=== PATIENT | male | born 1970 | race Caucasian/White ===

== ENCOUNTER 2023-07-11 13:16 | Outpatient (AMB) | payer BC, SELFPAY ==
[2023-07-11 13:18] VITALS: BP 172/102; PULSE 76; O2SAT 99; BMI 33.6
--- NOTE | 2023-07-11 13:18 | A.OFFPC_ITS ---
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 Allergies Penicillins Allergy (Mild, Verified 07/11/23 13:23) Unknown Medication List - Last Reconciled 07/11/23 by Stephania Torre MD blood pressure monitor (Blood Pressure Kit) As directed Tobacco use date assessed: 07/11/23 Dental Screening Dental Screen Date: 07/11/23 Did you have a dental visit in the last 12 months?: No Did you have a dental problem in the last 6 months where you did not have access to dental care?: No Was dental information given to patient?: Patient has dentist HPI New patient-requesting physical HPI Details 53-year-old obese male coming in for the 1st time for physical exam. syncope kid, falls asleep in the couch, snore, sleep apnea was told but could not tolerate the CPAP. Discussed importance of getting this treated. [facility] Medical History (Updated 07/11/23 @ 13:52 by Stephania Torre MD) Lumbar vertebral fracture Surgical History (Updated 07/11/23 @ 13:37 by Stephania Torre MD) History of appendectomy Family History (Updated 07/11/23 @ 13:39 by Stephania Torre MD) Maternal Uncle Myocardial infarct Father Colon cancer Mother Small cell lung cancer Sister Bipolar 1 disorder Social History (Updated 07/11/23 @ 13:40 by Stephania Torre MD) Housing: House Alcohol intake: current Patient Tobacco Use Status: Former Tobacco user Years Smoked: quit 1987 1 pack week 6months service: No Current occupational status: employed Cognitive needs: No Hearing needs: No Vision needs: No Questionnaire PHQ-9 Over the last 2 weeks, how often have you been bothered by any of the following problems? 1. Little interest or pleasure in doing things: not at all 2. Feeling down, depressed, or hopeless: not at all 3. Trouble falling or staying asleep, or sleeping too much: not at all 4. Feeling tired or having little energy: not at all 5. Poor appetite or overeating: not at all 6. Feeling bad about yourself - or that you are a failure or have let yourself or your family down: not at all 7. Trouble concentrating on things, such as reading the newspaper or watching television: not at all 8. Moving or speaking so slowly that other people could have noticed. Or the opposite - being so fidgety or restless that you have been moving around a lot more than usual: not at all 9. Thoughts that you would be better off or of hurting yourself in some way: not at all Total score: 0 Depression Screening Interpretation: Negative Source: Developed by Drs. Eric Watson, Yoselin Carranza, French Navas and colleagues, with an educational bruce from [employer]. Thrive Questionnaire Date Thrive assessed: 07/11/23 I am a: Patient What is your living situation today?: I have a steady place to live Within the past 12 months, did the food you bought not last and you didn't have the money to get more?: Never true Within the past 12 months, did you worry whether your food would run out before you got money to buy more?: Never true Do you have trouble paying for medicines?: No Do you have trouble getting transportation to medical appointments?: No Do you have trouble paying your heating and electricity bill?: No Do you have trouble taking care of your child, family member or friend?: No Do you have trouble with day-to-day activities such as bathing, preparing meals, shopping, managing finances, etc.?: No Are you currently unemployed and looking for a job?: No Are you interested in more education?: No AUDIT C Alcohol Use Questionnaire (AUDIT-C) 1. How often do you have a drink containing alcohol?: Monthly or less 2. How many drinks containing alcohol do you have on a typical day when you are drinking?: 1 or 2 3. How often do you have six or more drinks on one occasion?: Never Total Score: 1 BARBER-7 AMB Questionnaire BARBER-7 Date BARBER - 7 assessed: 07/11/23 Feeling nervous, anxious, or on edge: 0 = Not at all Not being able to stop or control worryin = Not at all Worrying too much about different things: 0 = Not at all Trouble relaxin = Not at all Being so restless that it is hard to sit still: 0 = Not at all Becoming easily annoyed or irritable: 0 = Not at all Feeling afraid as if something awful might happen: 0 = Not at all Total BARBER-7 score (0-4 normal; 5-9 mild; 10-14 moderate; 15-21 severe): 0 Source: Developed by Drs. Eric Watson, Yoselin Carranza, French Navas and colleagues, with an educational bruce from [employer]. Review of Systems Const Denies poor appetite and Denies weakness Eyes Denies no additional complaints ENT Reports Normal hearing present, Denies dizziness, Denies nasal congestion, Denies tinnitus and Denies sore throat Card Denies chest pain, Denies syncope, Denies rapid heart rate and Denies dyspnea Resp Denies cough and Denies dyspnea GI Denies change in stool character, Reports constipation, Denies diarrhea, Denies nausea and Denies vomiting Denies dysuria and Denies urinary frequency Neuro Reports Normal hearing present, Denies confusion, Denies dizziness, Denies syncope and Denies weakness Psych Denies confusion Physical exam (Primary Care) Vital Signs: Last Vital Signs Pulse 76 07/11/23 13:18 BP 172/102 H 07/11/23 13:18 Pulse Ox 99 07/11/23 13:18 Oxygen Delivery Method Room Air 07/11/23 13:18 Care Plan Goal for BP management: umbilical hernia BMI result Body Mass Index 33.6 Tobacco/Smoking Status: Tobacco use Status Tobacco use date assessed 07/11/23 07/11/23 13:20 Patient Tobacco Use Status Former Tobacco user 07/11/23 13:40 PHQ-9: PHQ-9 Score PHQ-9: Total score 0 07/11/23 14:12 Depression Screening Interpretation: Negative Thrive Assessment: Date of Thrive Assessment Date Thrive assessed 07/11/23 07/11/23 13:20 Const General: No confusion Orientation/consciousness: No confusion HENMT Head: Yes normocephalic Ears: external ears normal and TM's normal bilaterally Face and sinus: Yes normal facial exam Mouth: moist mucous membranes Throat: Yes tonsils normal Eyes Conjunctivae: conjunctivae normal Pupils: Equal, round and reactive pupils present and Pupil accommodation reflex normal Direct Ophthalmoscopy: normal light reflex Neck Neck: No lymphadenopathy Thyroid: Thyroid normal Chest Chest palpation & inspection: normal inspection of the chest Resp Effort & Inspection: normal respiratory effort and no audible wheezes Auscultation: clear to auscultation bilaterally, no crackles, no wheezes and lung sounds not diminished Cardio Rate: regular rate Rhythm: regular rhythm Peripheral pulses: radial pulses present and dorsalis pedis present GI Other: guaiac negative prostate n Palpation (GI): no masses Auscultation: normal bowel sounds and normoactive bowel sounds Male General Exam: Yes normal external exam Skin General skin exam: no rashes or lesions noted Rashes: no rashes Neuro General: No confusion Cranial nerves: Yes Equal, round and reactive pupils present and Yes Normal hearing present Cognition (Neuro): normal cognition Gait exam (Neuro): Normal gait present Motor exam (neuro): 5/5 motor strength present throughout Deep tendon reflexes (DTR's): Right brachioradialis reflex intensity grade: 2+, Left brachioradialis reflex intensity grade: 2+, Right patellar reflex intensity grade: 2+ and Left patellar reflex intensity grade: 2+ Extrem Other: 1 + edema General: Yes edema Assessment and Plan Assessment & Plan (1) Annual physical exam: Code(s): Z00.00 - Encounter for general adult medical examination without abnormal findings (2) Obesity (BMI 30-39.9): Code(s): E66.9 - Obesity, unspecified Plan: Diet With exercise (3) Hypertension: Code(s): I10 - Essential (primary) hypertension Plan: Continue with blood pressure medication. Decrease salt intake and exercise (4) Obstructive sleep apnea: Code(s): G47.33 - Obstructive sleep apnea (adult) (pediatric) Plan: Sleep study requested (5) GERD (gastroesophageal reflux disease): Code(s): K21.9 - Gastro-esophageal reflux disease without esophagitis Plan: Avoid the foods that causes that usually spicy foods, tomato products, juices, coffee, soda and foods that your sensitive to. After eating do not lie down, allow 3-4 hours before in lie down. And keep the head of bed above 30 degrees to avoid the acid from going up. (6) Colon cancer screening: Code(s): Z12.11 - Encounter for screening for malignant neoplasm of colon Plan: Referral done (7) Umbilical hernia: Code(s): K42.9 - Umbilical hernia without obstruction or gangrene Plan: Declined any referral to surgery, avoid heavy lifting monitor for now Orders: Orders RT home sleep study Today G47.33 - Obstructive sleep apnea (adult) (pediatric) Vitamin B12 and Folate Today K21.9 - Gastro-esophageal reflux disease without esophagitis Comprehensive Met. Panel Today I10 - Essential (primary) hypertension Lipid Panel Today E78.00 - Pure hypercholesterolemia, unspecified, I10 - Essential (primary) hypertension Prostate Specific Antigen Scr Today I10 - Essential (primary) hypertension Free T4 (Free Thyroxine) Today I10 - Essential (primary) hypertension Thyroid Stimulating Hormone Today I10 - Essential (primary) hypertension Complete Blood Count Auto Diff Today I10 - Essential (primary) hypertension TDaP Immunization Today Z23 - Encounter for immunization Referrals Gastroenterology Referral Z12.11 - Encounter for screening for malignant neoplasm of colon Medications: New Boostrix Tdap (diphth,pertus(acell),tetanus) 0.5 mL IM ONCE 0.5 mL 0RF NS Z23 - Encounter for immunization blood pressure monitor (Blood Pressure Kit) As directed 1 ea 0RF I10 - Essential (primary) hypertension, R03.0 - Elevated blood-pressure reading, without diagnosis of hypertension blood pressure monitor (Blood Pressure Kit) As directed 1 ea 0RF I10 - Essential (primary) hypertension, R03.0 - Elevated blood-pressure reading, without diagnosis of hypertension lisinopril-hydrochlorothiazide 10-12.5 mg 1 tab PO DAILY 30 tabs 3RF I10 - Essential (primary) hypertension Coding Level of Care Code New Pt Prev Care 40-64y(24969) Diagnoses Annual physical exam Z00.00 Obesity (BMI 30-39.9) E66.9 Hypertension I10 Obstructive sleep apnea G47.33 GERD (gastroesophageal reflux disease) K21.9 Colon cancer screening Z12.11 Umbilical hernia K42.9
== END 2023-07-11 14:18 | disposition home or self-care (01) ==
PROVIDERS: PCP Internal Medicine; Visit Provider Internal Medicine
DX: Z00.00 Encounter for general adult medical examination without abnormal findings (principal); E66.9 Obesity, unspecified; I10 Essential (primary) hypertension; K21.9 Gastro-esophageal reflux disease without esophagitis; Z68.33 Body mass index [BMI] 33.0-33.9, adult; G47.33 Obstructive sleep apnea (adult) (pediatric); Z23 Encounter for immunization; Z12.11 Encounter for screening for malignant neoplasm of colon; K42.9 Umbilical hernia without obstruction or gangrene
CPT/HCPCS: 90471; 90715; 99386

== ENCOUNTER 2023-08-15 08:10 | Outpatient (REF) | payer BC, SELFPAY ==
[2023-08-15 10:58] LABS: MANUAL DIFF FLAG NO
[2023-08-15 11:06] LABS: Basophils Absolute Auto 0.1 X10*3/uL (0.0-0.2); Basophils Percent Auto 0.7 % (0-2); Eosinophils Absolute Auto 0.3 X10*3/uL (0.0-0.4); Eosinophils Percent Auto 3.5 % (0-4); Hematocrit 48.5 % (42.0-52.0); Hemoglobin 15.5 g/dl (14.0-18.0); Imm Gran Abs Auto 0.06 X10*3/uL (0.00-0.03); Imm Gran Pct Auto 0.8 % (0.0-0.4); Lymphocytes Absolute Auto 1.9 X10*3/uL (1.2-4.9); Lymphocytes Percent Auto 25.1 % (20-40); Mean Corpuscular Hemoglobin 27.2 pg (27.0-33.0); Mean Corpuscular Volume 85.2 fL (80.0-98.0); Mean Platelet Volume 11.1 fL (9.4-12.4); Monocytes Absolute Auto 0.7 X10*3/uL (0.1-1.2); Neutrophils Absolute Auto 4.7 x10*3/uL (2.0-8.3); Neutrophils Percent Auto 60.9 % (45-73); Platelet Count 244 X10*3/uL (160-400); Red Blood Count 5.69 X10*6/uL (4.60-5.80); White Blood Count 7.7 X10*3/uL (4.8-10.8)
[2023-08-15 12:11] LABS: Prostate Specific Antigen Scr 0.32 ng/mL (<0.05-4.0); Vitamin B12 571 pg/mL (200-900)
[2023-08-15 12:15] LABS: Free T4 (Free Thyroxine) 0.99 ng/dL (0.71-1.85); Thyroid Stimulating Hormone 2.14 uIU/mL (0.32-4.0)
[2023-08-15 13:42] LABS: Alanine Aminotransferase 33 U/L (0-40); Albumin Level 4.5 g/dL (3.5-5.0); Alkaline Phosphatase 84 U/L (39-117); Anion Gap 14 (12-20); Aspartate Amino Transferase 28 U/L (5-37); Bilirubin Total 0.4 mg/dL (0.0-1.0); Blood Urea Nitrogen 14 mg/dL (9-16); Calcium 9.8 mg/dL (8.4-10.2); Carbon Dioxide 29 mmol/L (22-29); Chloride 104 mmol/L (96-108); Cholesterol 221 mg/dL (<200); Estimated Glomerular Filt Rate > 60; Glucose Random 127 mg/dL (60-115); HDL Cholesterol 47 mg/dL (>40); LDL Cholesterol Calculated 144 mg/dL (<100); Potassium 4.5 mmol/L (3.3-5.1); Sodium 142 mmol/L (135-145); Total Protein 7.7 g/dL (6.5-8.0); Triglycerides 153 mg/dL (<150)
== END 2023-08-15 08:11 | disposition home or self-care (01) ==
LOC: HO.10HDL 08:10
PROVIDERS: Visit Provider Internal Medicine
DX: Z12.5 Encounter for screening for malignant neoplasm of prostate (principal); I10 Essential (primary) hypertension; E78.00 Pure hypercholesterolemia, unspecified; K21.9 Gastro-esophageal reflux disease without esophagitis
CPT/HCPCS: 36415; 80053; 80061; 82607; 82746; 84153; 84439; 84443; 85025

== ENCOUNTER → 2023-08-21 14:11 | Outpatient (REF) | payer BC, SELFPAY | LOC: HO.SL 14:11 | PROVIDERS: PCP Internal Medicine; Visit Provider Internal Medicine | DX: G47.33 Obstructive sleep apnea (adult) (pediatric) (principal) | CPT/HCPCS: 95806 ==

== ENCOUNTER → 2023-08-21 14:42 | Outpatient (BNV) | payer BC, SELFPAY | PROVIDERS: PCP Internal Medicine; Visit Provider Internal Medicine | DX: G47.33 Obstructive sleep apnea (adult) (pediatric) (principal) | CPT/HCPCS: 95806 ==

== ENCOUNTER 2023-09-11 13:32 | Outpatient (AMB) | payer BC, SELFPAY ==
--- NOTE | 2023-09-11 13:35 | MHC.OFFVIS ---
Intake Vital Signs 09/11/23 13:36 Height 6 ft Weight 244 lb 11.41 oz BMI 33.2 BP 140/80 H Pulse 80 Intake Visit Reasons: Colonoscopy Screening Forecast Analyst Required: No Information Interpreted: clinical only Allergies Penicillins Allergy (Mild, Verified 09/11/23 13:40) Unknown HPI Colonoscopy Screening HPI Details 53 year old?male here today for pre colonoscopy screening.? Patient was sent to us by his PCP.? This is his first colonoscopy screening.? Patient denies any gastrointestinal symptoms in the past or at present.? However only occasional acid reflux depending on what he eats. Patient denies dyspepsia, dysphagia or odynophagia. Patient's father was diagnosed with colo rectal cancer over 7 years ago and had surgical resection. No chemo. Sister was diagnosed with polyps. Denies history of difficulty with sedation or anesthesia in the past.? Patient was diagnosed in the past with sleep apnea, unable to wear CPAP machine. Just recently patient had home sleep study test done and awaiting for results.? Denies any history of cardiac, renal, pulmonary, or hepatic disease.?? No history of infectious? diseases like hepatitis A, B, C, HIV or tuberculosis.? Patient is not on any anticoagulation therapy. [facility] Medical History (Updated 09/23/23 @ 20:02 by Debo Syed [facility]) Family history of colorectal cancer Lumbar vertebral fracture Surgical History History of appendectomy Family History Maternal Uncle Myocardial infarct Father Colon cancer Mother Small cell lung cancer Sister Bipolar 1 disorder Social History Housing: House Alcohol intake: current Patient Tobacco Use Status: Former Tobacco user Years Smoked: quit 1987 1 pack week 6months service: No Current occupational status: employed Cognitive needs: No Hearing needs: No Vision needs: No Review of Systems Const Denies weight gain and Denies weight loss ENT Reports no additional complaints, Denies dysphagia and Denies odynophagia Card Reports no additional complaints Resp Reports no additional complaints GI Denies abdominal pain, Denies belching, Denies melena, Denies bloating, Denies change in bowel habits, Denies dysphagia, Denies excessive flatus, Denies dyspepsia, Denies heartburn, Denies diarrhea, Denies loose stools, Denies nausea, Denies odynophagia and Denies vomiting Reports no additional complaints Musc Reports no additional complaints Neuro Reports no additional complaints Psych Reports no additional complaints Endo Reports no additional complaints Physical Exam Vital Signs: Last Vital Signs Pulse 80 09/11/23 13:36 BP 140/80 H 09/11/23 13:36 BMI result Body Mass Index 33.2 Const General: healthy appearing, no acute distress and well developed Nutritional Appearance: obese Orientation/consciousness: patient oriented x3 HEENT Head: Yes normal to inspection, Yes normocephalic and Yes atraumatic Face and sinus: Yes normal facial exam Mouth: Normal oral and palatal mucosa present Throat: Yes posterior oropharynx normal, Yes tonsils normal and Yes uvula midline Eyes General: appearance normal, both eyes and all related structures Neck Neck: Yes normal visual inspection, Yes full ROM and Yes trachea midline Thyroid: Thyroid normal Resp Effort & Inspection: normal respiratory effort, able to speak in complete sentences, no tracheal deviation and symmetric chest movement Auscultation: clear to auscultation bilaterally Cardio Rate: regular rate Heart sounds: S1 normal heart sound present and S2 normal heart sound present GI Inspection: Yes normal to inspection, No distended and Yes obesity Palpation (GI): Soft to palpation, not firm, nontender and No hepatosplenomegaly present Auscultation: normal bowel sounds General: Yes no CVA tenderness Back/Spine/Pelvis Back: no CVA tenderness Skin General skin exam: elasticity normal, turgor normal and dry skin Neuro General: patient oriented x3 Psych Appearance: grossly normal Mental Status: mental status grossly normal Assessment & Plan Assessment & Plan (1) Colon cancer screening: Code(s): Z12.11 - Encounter for screening for malignant neoplasm of colon Plan: Patient denies any GI, cardiac or respiratory symptoms.? Denies any issues with anesthesia in the past.? History of sleep apnea not using CPAP.? No history infectious diseases in the past or present.? Not on any anticoagulation therapy.? As mentioned above in HPI patient's father was diagnosed 7 years ago with colorectal cancer. He believes he had colon resection but no chemo. Patient's sister had polyps.? Discussed at length the pre-procedure,? prep, diet & medications as well as what to expect prior, during and after the procedure.?? Stressed the importance of good bowel prep. ?Recommended the use of Vaseline or Calmoseptine OTC & baby wipes with bowel movements to promote comfort.? ?Patient verbalizes understanding and agrees to plan of care.? He was given the opportunity to ask questions and all questions answered.? We will see him after the procedure.? (2) GERD (gastroesophageal reflux disease): Code(s): K21.9 - Gastro-esophageal reflux disease without esophagitis (3) Family history of colorectal cancer: Code(s): Z80.0 - Family history of malignant neoplasm of digestive organs Medications: New bisacodyl (Dulcolax (bisacodyl)) take 2 tabs at noon the day before your colonoscopy 10 mg (2 x 5 mg) PO ONCE 2 tabs 0RF 1 day Z12.11 - Encounter for screening for malignant neoplasm of colon polyethylene glycol 3350 (Miralax) As directed by gastro[facility]ology [facility] at [facility] 238 grams PO ONCE 238 grams 0RF Z12.11 - Encounter for screening for malignant neoplasm of colon Coding Level of Care Code New Pt Level 3 (24676) Diagnoses Colon cancer screening Z12.11 GERD (gastroesophageal reflux disease) K21.9 Family history of colorectal cancer Z80.0 Time Spent (min) 40 Comment 30 minutes spent with patient and additional 10 minutes spent reviewing his records
[2023-09-11 13:36] VITALS: BP 140/80; PULSE 80; BMI 33.2
== END 2023-09-11 14:24 | disposition home or self-care (01) ==
PROVIDERS: PCP Internal Medicine; Visit Provider Nurse Practitioner Family
DX: K21.9 Gastro-esophageal reflux disease without esophagitis (principal); Z80.0 Family history of malignant neoplasm of digestive organs; Z12.11 Encounter for screening for malignant neoplasm of colon; Z01.818 Encounter for other preprocedural examination
CPT/HCPCS: S0285

== ENCOUNTER → 2023-09-11 13:32 | Outpatient (BNVA) | payer BC, SELFPAY | PROVIDERS: PCP Internal Medicine; Visit Provider Nurse Practitioner Family ==

== ENCOUNTER 2023-10-03 12:48 | Outpatient (AMB) | payer BC, SELFPAY ==
--- NOTE | 2023-10-03 13:07 | MHC.OFFVIS ---
Intake Vital Signs 10/03/23 13:09 Height 6 ft Weight 242 lb 6 oz BMI 32.9 BP 130/80 Blood Pressure Location Lt brachial Position Sitting Pulse 78 Pulse Source Pulse Oximeter Pulse Oximetry (%) 96 Oxygen Delivery Method Room Air Intake Visit Reasons: Hypertension Intake Note: Patient is here to follow up on HTN. 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 Accompanied by: Self / Same As Patient Allergies Penicillins Allergy (Mild, Verified 10/03/23 13:12) Unknown Medication List - Last Reconciled 10/03/23 by Stephania Torre MD [AUTOPAP 6-20 mm HG As directed] bisacodyl (Dulcolax (bisacodyl)) 10 mg (2 x 5 mg) PO ONCE 1 day blood pressure monitor (Blood Pressure Kit) As directed fexofenadine (Angelika Allergy) 180 mg PO DAILY lisinopril-hydrochlorothiazide 10-12.5 mg 1 tab PO DAILY polyethylene glycol 3350 (Miralax) 238 grams PO ONCE HPI Hypertension HPI Details 53-year-old obese male with hypertension, obstructive sleep apnea, GERD and umbilical hernia last seen in July 2023. Patient is here for follow-up patient has met with the journalism intern and colonoscopy spending. Patient did have the sleep study done August 2023 showing severe obstructive sleep apnea and has been advised auto PAP mode and pressure sending 6-20 cm 3 months of cough , tickle PFSH Medical History (Updated 10/03/23 @ 13:40 by Stephania Torre MD) Family history of colorectal cancer Lumbar vertebral fracture Surgical History History of appendectomy Family History Maternal Uncle Myocardial infarct Father Colon cancer Mother Small cell lung cancer Sister Bipolar 1 disorder Social History Housing: House Alcohol intake: current Patient Tobacco Use Status: Former Tobacco user Years Smoked: quit 1987 1 pack week 6months service: No Current occupational status: employed Cognitive needs: No Hearing needs: No Vision needs: No Physical Exam Vital Signs: Last Vital Signs Pulse 78 10/03/23 13:09 BP 130/80 10/03/23 13:09 Pulse Ox 96 10/03/23 13:09 Oxygen Delivery Method Room Air 10/03/23 13:09 BMI result Body Mass Index 32.9 Const General: alert; No acute distress Eyes Conjunctivae: conjunctivae normal Resp Auscultation: clear to auscultation bilaterally Cardio Rate: regular rate Rhythm: regular rhythm GI Inspection: Yes normal to inspection Extrem General: Yes normal to inspection and No edema Office Procedures Flu Questionnaire Does the patient have a severe egg allergy?: No Does the patient have severe life threatening allergies?: No Does the patient have a fever or illness today?: No Has the patient ever had Guillain-[place] Syndrome?: No Has the patient ever had any past reaction to a flu shot?: No Results AMB Hemoglobin A1c AMB Hemoglobin A1c 5.9 % Last Edit by Suzanna Martinez CMA on 10/03/23 13:40 Immunizations flu vacc [id number] 6mos up(PF) 60 mcg(15 mcgx4)/0.5 mL IM syringe Performing Provider: Stephania Torre MD Performing Location: [facility] Administered by: KAVITHA Sheth on 10/03/23 13:35 Dose Route Admin Location Dispensed Lot Number Expiration Date NDC Public Safety Dispatcher 0.5 mL IM Left Deltoid 0.5 mL [id number] 05/30/24 [id number] [employer] VIS Given Date VIS Provided VIS Publication Date 10/03/23 Single Vaccine 21 Eligibility Eligibility Date Funding Source Not [facility] Eligible 10/03/23 Private Assessment & Plan Assessment & Plan (1) Obstructive sleep apnea: Comment: Sleep study done 08/21/2023 showing severe. Obstructive sleep apnea AHI 30 advised CPAP auto PAP 6-20 Code(s): G47.33 - Obstructive sleep apnea (adult) (pediatric) Plan: Prescription has been done (2) Hypertension: Code(s): I10 - Essential (primary) hypertension Plan: Continue with blood pressure medication. Decrease salt intake and exercise patient on lisinopril hydrochlorothiazide 10/12.5 mg once a day (3) Obesity (BMI 30-39.9): Code(s): E66.9 - Obesity, unspecified Plan: Diet and exercise noted weight loss (4) GERD (gastroesophageal reflux disease): Code(s): K21.9 - Gastro-esophageal reflux disease without esophagitis Plan: Avoid the foods that causes that usually spicy foods, tomato products, juices, coffee, soda and foods that your sensitive to. After eating do not lie down, allow 3-4 hours before in lie down. And keep the head of bed above 30 degrees to avoid the acid from going up. (5) Elevated blood sugar: Code(s): R73.9 - Hyperglycemia, unspecified Plan: Decrease the amount of carbohydrate intake, pasta, bread, rice and potatoes are all sugar and that is aside from all the sweet stuff, remember that fruits are good but they are Sweet also. (6) Hypercholesterolemia: Code(s): E78.00 - Pure hypercholesterolemia, unspecified (7) Cough: Code(s): R05.9 - Cough, unspecified (8) Umbilical hernia: Code(s): K42.9 - Umbilical hernia without obstruction or gangrene (9) Impaired fasting blood sugar: Code(s): R73.01 - Impaired fasting glucose Orders: Orders Influenza [id number] Immunization Today Z23 - Encounter for immunization AMB Hemoglobin A1c Today R73.9 - Hyperglycemia, unspecified XR chest 2V Today R05.9 - Cough, unspecified Referrals General Surgery Referral K42.9 - Umbilical hernia without obstruction or gangrene Medications: New fexofenadine (Angelika Allergy) 180 mg PO DAILY 30 tabs 3RF R05.9 - Cough, unspecified Coding Level of Care Code Est Pt Level 4 (48221) Diagnoses Obstructive sleep apnea G47.33 Hypertension I10 Obesity (BMI 30-39.9) E66.9 GERD (gastroesophageal reflux disease) K21.9 Elevated blood sugar R73.9 Hypercholesterolemia E78.00 Cough R05.9 Umbilical hernia K42.9 Impaired fasting blood sugar R73.01
[2023-10-03 13:09] VITALS: BP 130/80; PULSE 78; O2SAT 96; BMI 32.9
== END 2023-10-03 13:48 | disposition home or self-care (01) ==
PROVIDERS: PCP Internal Medicine; Visit Provider Internal Medicine
DX: Z23 Encounter for immunization (principal); I10 Essential (primary) hypertension; E66.9 Obesity, unspecified; Z68.32 Body mass index [BMI] 32.0-32.9, adult; E78.00 Pure hypercholesterolemia, unspecified; R73.9 Hyperglycemia, unspecified
CPT/HCPCS: 83036; 90471; 90686; 99214

== ENCOUNTER 2023-10-07 14:19 | Outpatient (REF) | payer BC, SELFPAY ==
--- NOTE | ~2023-10-07 | XR_ITS ---
EXAMINATION: XR CHEST CLINICAL INFORMATION: Reason for Exam R05.9 - Cough, unspecified COMPARISON: None TECHNIQUE: 2 views of the chest FINDINGS: Lines and tubes: None. Clear lungs. No pleural effusion. No pneumothorax. Normal cardiomediastinal silhouette. XR/XR chest 2V IMPRESSION: * Clear lungs.
== END 2023-10-07 14:20 | disposition home or self-care (01) ==
LOC: HO.XRAY 14:19
PROVIDERS: PCP Internal Medicine; Visit Provider Internal Medicine
DX: R05.9 Cough, unspecified (principal)
CPT/HCPCS: 71046

== ENCOUNTER 2023-10-30 14:15 | Outpatient (AMB) | payer BC, SELFPAY ==
--- NOTE | 2023-10-30 14:22 | A.OFFVIS_ITS ---
Intake Vital Signs 3 10/30/23 14:31 Height 6 ft Weight 240 lb 6 oz BMI 32.6 BP 132/80 Blood Pressure Location Lt brachial Position Sitting Pulse 76 Intake Visit Reasons: umbilical hernia Intake Note: Patient is seen in office for evaluation and treatment of an umbilical hernia. 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 Accompanied by: Self / Same As Patient Allergies Penicillins Allergy (Mild, Verified 10/30/23 14:29) Unknown Medication List - Last Reconciled 10/30/23 by Ryan Love MD [AUTOPAP 6-20 mm HG As directed] bisacodyl (Dulcolax (bisacodyl)) 10 mg (2 x 5 mg) PO ONCE 1 day blood pressure monitor (Blood Pressure Kit) As directed fexofenadine (Angelika Allergy) 180 mg PO DAILY lisinopril-hydrochlorothiazide 10-12.5 mg 1 tab PO DAILY polyethylene glycol 3350 (Miralax) 238 grams PO ONCE HPI HPI Comments 2 History of Present Illness0 Details 53-year-old male patient presenting for evaluation of an umbilical hernia. He 1st noted the hernia approximately 4 years ago and since this time as increased in size, causing occasional discomfort. He reports 1 episode of nausea and vomiting but generally is asymptomatic. 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 He denies a previous history of surgery in this location. He has had a previous appendectomy for perforated appendicitis complicated by an abscess. [facility] Medical History Family history of colorectal cancer Lumbar vertebral fracture Surgical History History of appendectomy Family History Maternal Uncle Myocardial infarct Father Colon cancer Mother Small cell lung cancer Sister Bipolar 1 disorder Social History Housing: House Alcohol intake: current Patient Tobacco Use Status: Former Tobacco user Years Smoked: quit 1987 1 pack week 6months service: No Current occupational status: employed Cognitive needs: No Hearing needs: No Vision needs: No Review of Systems Const All systems reviewed & are unremarkable except as noted in HPI and below Denies chills, Denies fever(s), Denies headache(s), Denies poor appetite and Denies weakness ENT Denies headache(s) Card Denies chest pain, Denies irregular heart rhythm, Denies palpitations and Denies dyspnea Resp Denies cough, Denies excessive phlegm production and Denies dyspnea GI Denies abdominal pain, Denies bloating, Denies change in bowel habits, Denies constipation, Denies heartburn, Denies diarrhea, Denies nausea and Denies vomiting Denies difficulty urinating and Denies urinary frequency Musc Denies back pain, Denies muscle weakness and Denies numbness Skin/Breast Denies changing lesions and Denies unusual bruising Neuro Denies headache(s), Denies numbness, Denies paresthesias and Denies weakness Psych Denies anxiety and Denies depression Endo Denies palpitations Tate/Lymph Denies lymphadenopathy Physical Exam Vital Signs: Last Vital Signs Pulse 76 10/30/23 14:31 BP 132/80 10/30/23 14:31 BMI result Body Mass Index 32.6 Const General: cooperative and no acute distress Nutritional Appearance: well nourished Orientation/consciousness: patient oriented x3 Limitations: no limitations HEENT Head: Yes normocephalic and Yes atraumatic Ears: hearing grossly normal bilaterally Resp Effort & Inspection: normal respiratory effort, no audible wheezes, no cough and no respiratory distress Cardio Jugular venous distension: no JVD GI Other: Easily palpable umbilical hernia located just above the umbilicus. Hernia is easily reducible in the supine position. Defect measures approximately 2 cm in diameter. Inspection: Yes normal to inspection Palpation (GI): Soft to palpation, nontender, no guarding and not rigid Abdomen image: 2 1. Umbilical hernia, 2 cm diameter. Skin Other: Warm, dry, no rash Neuro General: patient oriented x3 Extrem General: Yes no clubbing, cyanosis or edema Assessment & Plan Assessment & Plan (1) Umbilical hernia: Code(s): K42.9 - Umbilical hernia without obstruction or gangrene Qualifiers: Obstruction and gangrene presence: without obstruction or gangrene Qualified Code(s): K42.9 - Umbilical hernia without obstruction or gangrene Plan 53-year-old male patient presenting with a 4 year history of an umbilical hernia. On examination he has a reducible 2 cm umbilical hernia which is easily Reducible with light pressure. I recommended repair of this umbilical hernia with mesh as an elective procedure after discussion of the procedure, risks, and alternatives, he consents to the repair of the umbilical hernia with mesh. Coding Level of Care Code New Pt Level 4 (31193) Diagnoses Umbilical hernia without obstruction and without gangrene K42.9 Obstruction and gangrene presence: without obstruction or gangrene
[2023-10-30 14:31] VITALS: BP 132/80; PULSE 76; BMI 32.6
== END 2023-10-30 14:47 | disposition home or self-care (01) ==
PROVIDERS: PCP Internal Medicine; Visit Provider Surgery
DX: K42.9 Umbilical hernia without obstruction or gangrene (principal)
CPT/HCPCS: 99204

== ENCOUNTER → 2023-10-30 14:15 | Outpatient (BNVA) | payer BC, SELFPAY | PROVIDERS: PCP Internal Medicine; Visit Provider Surgery ==

== ENCOUNTER 2023-12-08 05:59 | Day surgery (SDC) | payer BC, SELFPAY ==
[2023-12-04 07:44] VITALS: BMI 33.6
--- NOTE | 2023-12-05 09:03 | HO.ANESPROP2 ---
Documented by User: Rowena Phillips NP 12/05/23 09:13 HPI - Anesthesia Eval Consult details Narrative: 53yo M for Hernia Repair Umbilical w/mesh PMFSH Active Problems Active Problems: All Active Problems (Updated 10/30/23 @ 14:46 by Ryan Love MD) Impaired fasting blood sugar (Acute) Cough (Acute) Hypercholesterolemia (Acute) Elevated blood sugar (Acute) Family history of colorectal cancer (Acute) Umbilical hernia (Acute) Colon cancer screening (Acute) GERD (gastroesophageal reflux disease) (Acute) Obstructive sleep apnea (Acute) Hypertension (Acute) Blood pressure elevated without history of HTN (Acute) Obesity (BMI 30-39.9) (Acute) Annual physical exam (Acute) Past Medical History Medical History Hypercholesterolemia GERD (gastroesophageal reflux disease) Obstructive sleep apnea Family history of colorectal cancer Lumbar vertebral fracture Family History Family History Maternal Uncle Myocardial infarct Father Colon cancer Mother Small cell lung cancer Sister Bipolar 1 disorder Surgical History Surgical History History of appendectomy Social History Social History Housing: House Alcohol intake: current Patient Tobacco Use Status: Former Tobacco user Years Smoked: quit 1987 1 pack week 6months service: No Current occupational status: employed Cognitive needs: No Hearing needs: No Vision needs: No Meds Allergies Allergy/AdvReac Type Severity Reaction Status Date / Time Penicillins Allergy Mild Unknown Verified 10/30/23 14:29 Exam Height,Weight and Vital Signs: Height 6 ft Weight 112.491 kg Pertinent Lab Results Pertinent Lab Results: Laboratory Tests 08/15/23 08/15/23 08/15/23 07:15 08:15 08:15 WBC 7.7 Hgb 15.5 Hct 48.5 Plt Count 244 Sodium 142 Potassium 4.5 Chloride 104 Carbon Dioxide 29 BUN 14 Creatinine 1.04 Assessment and Plan Assessment Anesthesia Assessment: Chart Reviewed Documented by User: Lilli Ramires MD 12/08/23 07:59 [facility] Active Problems Active Problems: All Active Problems (Updated 12/08/23 @ 07:20 by Lilli Ramires MD) Impaired fasting blood sugar (Acute) Cough (Acute) Hypercholesterolemia (Acute) Elevated blood sugar (Acute) Family history of colorectal cancer (Acute) Umbilical hernia (Acute) Colon cancer screening (Acute) GERD (gastroesophageal reflux disease) (Acute) Obstructive sleep apnea (Acute). Does not use CPAP machine Hypertension (Acute) Obesity (BMI 30-39.9) (Acute) Annual physical exam (Acute) Past Medical History Medical History Hypercholesterolemia GERD (gastroesophageal reflux disease) Obstructive sleep apnea Family history of colorectal cancer Lumbar vertebral fracture Family History Family History Maternal Uncle Myocardial infarct Father Colon cancer Mother Small cell lung cancer Sister Bipolar 1 disorder Family history of problems with anesthesia: No Surgical History Surgical History History of appendectomy History of Problems with Anesthesia: No Social History Social History Housing: House Alcohol intake: current Patient Tobacco Use Status: Former Tobacco user Years Smoked: quit 1987 1 pack week 6months service: No Current occupational status: employed Cognitive needs: No Hearing needs: No Vision needs: No Meds Allergies Allergy/AdvReac Type Severity Reaction Status Date / Time Penicillins Allergy Mild Unknown Verified 10/30/23 14:29 Exam Height,Weight and Vital Signs: Height 6 ft Weight 112.491 kg Vital Signs Temp Pulse Resp BP Pulse Ox O2 Del Method 12/08/23 06:28 97.7 F 71 16 122/91 H 95 Room Air Airway Mallampati Class: III TM Dist: >3cm Neck ROM: Full Loose/Missing/Broken Teeth: Yes (Missing tooth bottom right back. Denies broken or loose teeth) Heart: RRR Lungs: CTAB Assessment and Plan Assessment Anesthesia Assessment: Anesthesia Plan Discussed Final Anesthetic Review Family History of Problems with Anesthesia: No History of Problems with Anesthesia: No NPO: Yes ASA Class: III Final Preanesthetic Review: No Changes in Pt Med Stat, Meds/Allgs Chart Reviewed, Consent Obtained/Reviewed and Anes Risks/Benef Reviewed Patient Risk: Intermediate Procedure Risk: Low Assessment/Block/Sedation in SS: Assess/Block/Sedation-SS Anesthetic Plan Anesthetic Plan: GA Disposition: Standard PACU
[2023-12-08 06:17] VITALS: BMI 32.3
[2023-12-08 06:28] VITALS: BP 122/91; PULSE 71; RESP 16; TEMP 36.5; O2SAT 95
--- NOTE | 2023-12-08 07:41 | MHC.SHP ---
Pre-Procedural Eval Section A Date of Service: 12/08/23 The patient is an INPATIENT: No Changes since office visit: Yes Patient answered all questions; No Cold of Flu in the past 2 weeks, No New Medical Problems and No Changes in Medication The History & Physical has been completed within 30 days and I have reviewed it.: Yes Section B Chief Complaint: Umbilical hernia without obstruction or gangrene Allergies: Allergies Allergy/AdvReac Type Severity Reaction Status Date / Time Penicillins Allergy Mild Unknown Verified 10/30/23 14:29 Plan Diagnosis/Plan: Unchanged I have reviewed the history and physical and performed a pertinent physical examination on my patient. No changes have occurred unless specified. Time Spent With Patient Time: Total time managing care of this patient today ____ minutes.
--- NOTE | 2023-12-08 07:43 | W.PM.OPN ---
Operative Note Operative Note Date of Service: 12/08/23 Narrative: Preoperative diagnosis: Umbilical hernia, reducible Postoperative diagnosis: Same Procedure: Repair of umbilical hernia with mesh Surgeon: Ryan Love MD Sleeve Baster: Chelly Blank PA-C Anesthesia: General LMA Indications for procedure: 53-year-old male patient presenting with a reducible umbilical hernia. The hernia increases in size with lifting and coughing and reduces with light pressure. On examination he was found to have a 2 cm reducible umbilical hernia Operative findings: 2 cm reducible umbilical hernia, repaired with a 4.6 cm Ventralex circular mesh Specimen: None Estimated blood loss: Less than 2 mL Complications: None Procedure details: Patient was brought to the OR placed in a supine position. After administering general anesthesia patient's abdomen was prepped with ChloraPrep and draped in a sterile fashion. A surgical time-out was called the consent confirmed. Patient received preoperative antibiotics and Venodyne boots were in place. Local anesthesia was then infiltrated circumferentially around a umbilicus. A curvilinear incision was then made in a transverse fashion over the umbilicus. This was carried out through subcutaneous tissue up to the hernia sac. The hernia sac was then dissected down to the fascial edge. The hemostat was then used to dissect the base of the hernia below the umbilicus. The hernia sac was then dissected off the umbilical skin. This was then dissected along the fascial edge. The hernia was reduced and a preperitoneal space created using electrocautery and sharp dissection. Hemostasis was assured all times using electrocautery. A 4.6 cm round Ventralex mesh was then obtained. This was then deployed within the preperitoneal space and secured at 4 quadrants using a 1 Tycron suture. The fascia was then closed over the mesh using [id number] 1 Tycron sutures. Wounds were then irrigated with saline solution. Umbilical skin was then reattached to the fascia using a 3-0 Polysorb suture. Dermis was reapproximated using interrupted 3-0 Polysorb sutures. Skin was then closed using a running subcuticular 4-0 Polysorb suture. Steri-Strips, 2 x 2 gauze and Tegaderm were then applied. The patient tolerated the procedure well. Sponge, instrument, needle counts reported as correct. Patient was transferred to PACU in stable condition.
[2023-12-08 08:30] VITALS: BP 117/79; PULSE 73; RESP 12; TEMP 36.2; O2SAT 95
[2023-12-08 08:35] VITALS: BP 126/92; PULSE 77; RESP 13; O2SAT 96
[2023-12-08 08:40] VITALS: BP 137/83; PULSE 73; RESP 13; O2SAT 96
[2023-12-08 08:45] VITALS: BP 141/87; PULSE 66; RESP 15; O2SAT 95
[2023-12-08 09:00] VITALS: BP 123/67; PULSE 70; RESP 16; TEMP 36.3; O2SAT 98
== END 2023-12-08 10:00 | disposition home or self-care (01) ==
PROVIDERS: PCP Internal Medicine; Visit Provider Surgery
PROC: (CPT 49591; principal; 2023-12-08 07:30)
DX: K42.9 Umbilical hernia without obstruction or gangrene (principal); Z80.0 Family history of malignant neoplasm of digestive organs; K21.9 Gastro-esophageal reflux disease without esophagitis; E78.00 Pure hypercholesterolemia, unspecified; G47.33 Obstructive sleep apnea (adult) (pediatric); Z79.899 Other long term (current) drug therapy; Z88.0 Allergy status to penicillin; Z87.891 Personal history of nicotine dependence
CPT/HCPCS: 49591; C1781; C9088; J0665; J1100; J1885; J2250; J2405; J2704; J3010; J3371

== ENCOUNTER → 2023-12-08 05:59 | Outpatient (BNV) | payer BC, SELFPAY | PROVIDERS: PCP Internal Medicine; Visit Provider Surgery | DX: K42.9 Umbilical hernia without obstruction or gangrene (principal) | CPT/HCPCS: 49591 ==

== ENCOUNTER 2023-12-18 10:54 | Outpatient (AMB) | payer BC, SELFPAY ==
--- NOTE | 2023-12-18 10:58 | A.OFFVIS_ITS ---
Intake Vital Signs 12/18/23 11:03 Height 6 ft Weight 240 lb BMI 32.5 BP 134/82 Blood Pressure Location Lt brachial Position Sitting Pulse 74 Intake Visit Reasons: S/P umbilical hernia w/mesh Intake Note: Patient is seen in office for post op assessment post umbilical hernia repair. 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 Accompanied by: Self / Same As Patient Allergies Penicillins Allergy (Mild, Verified 12/18/23 11:04) Unknown Medication List - Last Reconciled 12/18/23 by Ryan Love MD [AUTOPAP 6-20 mm HG As directed] bisacodyl (Dulcolax (bisacodyl)) 10 mg (2 x 5 mg) PO ONCE 1 day blood pressure monitor (Blood Pressure Kit) As directed fexofenadine (Angelika Allergy) 180 mg PO DAILY lisinopril-hydrochlorothiazide 10-12.5 mg 1 tab PO DAILY polyethylene glycol 3350 (Miralax) 238 grams PO ONCE HPI HPI Comments History of Present Illness Details 53-year-old male status post repair of a n umbilical hernia with mesh. He tolerated the procedure well returns today for wound check. He reports not taking any pain medication after the surgery. He denies any bleeding or dischar ge from the incision. He is eating well and denies any bowel changes. [facility] Medical History Hypercholesterolemia GERD (gastroesophageal reflux disease) Obstructive sleep apnea Family history of colorectal cancer Lumbar vertebral fracture Surgical History History of umbilical hernia repair (12/08/23) History of appendectomy Family History Maternal Uncle Myocardial infarct Father Colon cancer Mother Small cell lung cancer Sister Bipolar 1 disorder Social History Housing: House Alcohol intake: current Patient Tobacco Use Status: Former Tobacco user Years Smoked: quit 1987 1 pack week 6months service: No Current occupational status: employed Cognitive needs: No Hearing needs: No Vision needs: No Physical Exam Const General: no acute distress Nutritional Appearance: well nourished Orientation/consciousness: patient oriented x3 Limitations: no limitations Resp Effort & Inspection: normal respiratory effort GI Other: Umbilical incision is clean, dry, and intact without redness or discharge. Inspection: Yes normal to inspection Palpation (GI): Soft to palpation, nontender, no guarding and not rigid Skin Other: Warm, dry, no rash Neuro General: patient oriented x3 Assessment & Plan Assessment & Plan (1) Umbilical hernia: Code(s): K42.9 - Umbilical hernia without obstruction or gangrene Qualifiers: Obstruction and gangrene presence: without obstruction or gangrene Qualified Code(s): K42.9 - Umbilical hernia without obstruction or gangrene Plan 53-year-old male status post repair of an umbilical hernia 1 week ago. He tolerated the procedure well and his wounds are healing nicely. He should continue to avoid lifting greater than 10 lb for the next 4 weeks and return at that time for follow-up examination. He is welcome to call sooner for any new concerns. Coding Level of Care Code Global (35954) Diagnoses Umbilical hernia without obstruction and without gangrene K42.9 Obstruction and gangrene presence: without obstruction or gangrene
[2023-12-18 11:03] VITALS: BP 134/82; PULSE 74; BMI 32.5
== END 2023-12-18 11:09 | disposition home or self-care (01) ==
PROVIDERS: PCP Internal Medicine; Visit Provider Surgery
DX: K42.9 Umbilical hernia without obstruction or gangrene (principal)
CPT/HCPCS: 99212

== ENCOUNTER → 2023-12-18 10:54 | Outpatient (BNVA) | payer BC, SELFPAY | PROVIDERS: PCP Internal Medicine; Visit Provider Surgery ==

== ENCOUNTER 2024-01-14 13:05 | Outpatient (AMB) | payer BC, SELFPAY ==
[2024-01-14 13:06] VITALS: BP 130/80; PULSE 87; O2SAT 98; BMI 32.8
--- NOTE | 2024-01-14 13:06 | A.OFFPC_ITS ---
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 Last seen October 2023. Patient had umbilical hernia status post repair December 2023. Patient had a cough at that time and this has been getting better as per patient chest x-ray done negative results and declined any referral for Pulmonary. Did take allergy medication which did not help. [facility] Medical History (Updated 01/14/24 @ 13:45 by Stephania Torre MD) Hypercholesterolemia Obstructive sleep apnea Elevated blood sugar Colon cancer screening Blood pressure elevated without history of HTN GERD (gastroesophageal reflux disease) Family history of colorectal cancer Lumbar vertebral fracture Surgical History History of umbilical hernia repair (12/08/23) History of appendectomy Family History Maternal Uncle Myocardial infarct Father Colon cancer Mother Small cell lung cancer Sister Bipolar 1 disorder Social History Housing: House Alcohol intake: current Patient Tobacco Use Status: Former Tobacco user Years Smoked: quit 1987 1 pack week 6months service: No Current occupational status: employed Cognitive needs: No Hearing needs: No Vision needs: No Questionnaire Thrive Questionnaire Date Thrive assessed: 01/14/24 I am a: Patient What is your living situation today?: I have a steady place to live Within the past 12 months, did the food you bought not last and you didn't have the money to get more?: Never true Within the past 12 months, did you worry whether your food would run out before you got money to buy more?: Never true Do you have trouble paying for medicines?: No Do you have trouble getting transportation to medical appointments?: No Do you have trouble paying your heating and electricity bill?: No Do you have trouble taking care of your child, family member or friend?: No Do you have trouble with day-to-day activities such as bathing, preparing meals, shopping, managing finances, etc.?: No Are you currently unemployed and looking for a job?: No Are you interested in more education?: No Please select the resources that you would like help with: None THRIVE Score: 0 AUDIT C Alcohol Use Questionnaire (AUDIT-C) 1. How often do you have a drink containing alcohol?: Monthly or less 2. How many drinks containing alcohol do you have on a typical day when you are drinking?: 1 or 2 3. How often do you have six or more drinks on one occasion?: Never Total Score: 1 BARBER-7 AMB Questionnaire BARBER-7 Date BARBER - 7 assessed: 01/14/24 Source: Developed by Drs. Eric Watson, Yoselin Carranza, French Navas and colleagues, with an educational bruce from [employer]. Physical exam (Primary Care) Vital Signs: Last Vital Signs Pulse 87 01/14/24 13:06 BP 130/80 01/14/24 13:06 Pulse Ox 98 01/14/24 13:06 Oxygen Delivery Method Room Air 01/14/24 13:06 BMI result Body Mass Index 32.8 Tobacco/Smoking Status: Tobacco use Status Tobacco use date assessed 01/14/24 01/14/24 13:07 Patient Tobacco Use Status Former Tobacco user 01/14/24 13:07 Thrive Assessment: Date of Thrive Assessment Date Thrive assessed 01/14/24 01/14/24 13:16 Const General: alert; No acute distress Eyes Conjunctivae: conjunctivae normal Resp Auscultation: clear to auscultation bilaterally Cardio Rate: regular rate Rhythm: regular rhythm GI Inspection: Yes normal to inspection Extrem General: Yes normal to inspection and No edema Assessment and Plan Assessment & Plan (1) Impaired fasting blood sugar: Code(s): R73.01 - Impaired fasting glucose Plan: Decrease the amount of carbohydrate intake, pasta, bread, rice and potatoes are all sugar and that is aside from all the sweet stuff, remember that fruits are good but they are Sweet also. (2) Family history of colorectal cancer: Code(s): Z80.0 - Family history of malignant neoplasm of digestive organs Plan: Colonoscopy scheduled for January 2024 (3) Umbilical hernia: Comment: Repair Dr. Love December 2023 Code(s): K42.9 - Umbilical hernia without obstruction or gangrene Qualifiers: Obstruction and gangrene presence: without obstruction or gangrene Qualified Code(s): K42.9 - Umbilical hernia without obstruction or gangrene Plan: Status post umbilical repair December 2023 (4) Hypertension: Code(s): I10 - Essential (primary) hypertension Plan: Continue with blood pressure medication. Decrease salt intake and exercise presently on lisinopril hydrochlorothiazide 09/11. (5) Obesity (BMI 30-39.9): Code(s): E66.9 - Obesity, unspecified Plan: Diet and exercise (6) Obstructive sleep apnea: Comment: Sleep study done 08/21/2023 showing severe. Obstructive sleep apnea AHI 30 advised CPAP auto PAP 6-20 Code(s): G47.33 - Obstructive sleep apnea (adult) (pediatric) Plan: will try to follow up on the AUTO (7) Hypercholesterolemia: Code(s): E78.00 - Pure hypercholesterolemia, unspecified Plan: Avoid fried foods, chicken skin, eggs, butter margarine, pastries and meat. Be it pork or beef they have a lot of cholesterol will retest blood work in 3 months (8) Cough: Code(s): R05.9 - Cough, unspecified Plan: better, allergy meds did not help, chest xray negartive - will call if not getting any better- will refer to Pulmonary Orders: Orders Comprehensive Met. Panel 3 Months R73.01 - Impaired fasting glucose Hemoglobin A1c 3 Months R73.01 - Impaired fasting glucose Lipid Panel 3 Months E78.00 - Pure hypercholesterolemia, unspecified, R73.01 - Impaired fasting glucose Medications: Refilled [AUTOPAP 6-20 mm HG] As directed 1 ea 0RF G47.33 - Obstructive sleep apnea (adult) (pediatric) Coding Level of Care Code Est Pt Level 4 (66239) Diagnoses Impaired fasting blood sugar R73.01 Family history of colorectal cancer Z80.0 Umbilical hernia without obstruction and without gangrene K42.9 Obstruction and gangrene presence: without obstruction or gangrene Hypertension I10 Obesity (BMI 30-39.9) E66.9 Obstructive sleep apnea G47.33 Hypercholesterolemia E78.00 Cough R05.9
== END 2024-01-14 13:59 | disposition home or self-care (01) ==
PROVIDERS: PCP Internal Medicine; Visit Provider Internal Medicine
DX: R73.01 Impaired fasting glucose (principal); Z80.0 Family history of malignant neoplasm of digestive organs; E66.9 Obesity, unspecified; Z68.32 Body mass index [BMI] 32.0-32.9, adult; K42.9 Umbilical hernia without obstruction or gangrene; I10 Essential (primary) hypertension; G47.33 Obstructive sleep apnea (adult) (pediatric); E78.00 Pure hypercholesterolemia, unspecified; R05.9 Cough, unspecified
CPT/HCPCS: 99214

== ENCOUNTER 2024-01-15 14:13 | Outpatient (AMB) | payer BC, SELFPAY ==
--- NOTE | 2024-01-15 14:26 | A.OFFVIS_ITS ---
Intake Vital Signs 3 01/15/24 14:28 Height 6 ft Weight 240 lb 4.862 oz BMI 32.6 BP 122/80 Blood Pressure Location Lt brachial Position Sitting Intake Visit Reasons: S/P umbilical hernia w/mesh, 1 mo follow up Intake Note: Patient is seen in office for one month follow up visit, post umbilical hernia repair. Pt c/o: denies any concerns at the time of visit Shrimp Trawler Required: No Accompanied by: Self / Same As Patient Allergies Penicillins Allergy (Mild, Verified 01/15/24 14:27) Unknown HPI HPI Comments 2 History of Present Illness0 Details 54-year-old male patient returning 1 month following repair of an umbilical hernia with mesh. He tolerated the procedure well and returns today for final postoperative visit. He feels well and denies any ongoing abdominal symptoms. [facility] Medical History (Updated 01/14/24 @ 13:45 by Stephania Torre MD) Hypercholesterolemia Obstructive sleep apnea Elevated blood sugar Colon cancer screening Blood pressure elevated without history of HTN GERD (gastroesophageal reflux disease) Family history of colorectal cancer Lumbar vertebral fracture Surgical History History of umbilical hernia repair (12/08/23) History of appendectomy Family History Maternal Uncle Myocardial infarct Father Colon cancer Mother Small cell lung cancer Sister Bipolar 1 disorder Social History Housing: House Alcohol intake: current Patient Tobacco Use Status: Former Tobacco user Years Smoked: quit 1987 1 pack week 6months service: No Current occupational status: employed Cognitive needs: No Hearing needs: No Vision needs: No Physical Exam Vital Signs: Last Vital Signs BP 122/80 01/15/24 14:28 BMI result Body Mass Index 32.6 Const General: comfortable Nutritional Appearance: well nourished Orientation/consciousness: patient oriented x3 Resp Effort & Inspection: normal respiratory effort GI Other: Umbilical incision is clean, dry, and intact without redness or discharge. Inspection: Yes normal to inspection Palpation (GI): Soft to palpation, nontender, no guarding and not rigid Abdomen image: 2 1. Incision just above umbilicus. Neuro General: patient oriented x3 Extrem General: Yes normal to inspection Assessment & Plan Assessment & Plan (1) Umbilical hernia: Comment: Repair Dr. Love December 2023 Code(s): K42.9 - Umbilical hernia without obstruction or gangrene Qualifiers: Obstruction and gangrene presence: without obstruction or gangrene Qualified Code(s): K42.9 - Umbilical hernia without obstruction or gangrene Plan 54-year-old male status post repair of an umbilical hernia 1 month ago. He may resume normal activity without restriction and should follow up as needed. Coding Level of Care Code Global (32662) Diagnoses Umbilical hernia without obstruction and without gangrene K42.9 Obstruction and gangrene presence: without obstruction or gangrene
[2024-01-15 14:28] VITALS: BP 122/80; BMI 32.6
== END 2024-01-15 14:41 | disposition home or self-care (01) ==
PROVIDERS: PCP Internal Medicine; Visit Provider Surgery
DX: K42.9 Umbilical hernia without obstruction or gangrene (principal)
CPT/HCPCS: 99212

== ENCOUNTER → 2024-01-15 14:13 | Outpatient (BNVA) | payer BC, SELFPAY | PROVIDERS: PCP Internal Medicine; Visit Provider Surgery ==

== ENCOUNTER 2024-02-06 09:41 | Outpatient (REF) | payer BC, SELFPAY ==
[2024-02-06 10:51] LABS: Estimated Average Glucose 126 mg/dL
[2024-02-06 12:23] LABS: Alanine Aminotransferase 44 U/L (0-40); Albumin Level 4.7 g/dL (3.5-5.0); Alkaline Phosphatase 97 U/L (39-117); Anion Gap 14 (12-20); Aspartate Amino Transferase 37 U/L (5-37); Bilirubin Total 0.8 mg/dL (0.0-1.0); Blood Urea Nitrogen 16 mg/dL (9-16); Calcium 10.1 mg/dL (8.4-10.2); Carbon Dioxide 29 mmol/L (22-29); Chloride 102 mmol/L (96-108); Cholesterol 193 mg/dL (<200); Estimated Glomerular Filt Rate > 60; Glucose Random 94 mg/dL (60-115); HDL Cholesterol 46 mg/dL (>40); LDL Cholesterol Calculated 132 mg/dL (<100); Sodium 141 mmol/L (135-145); Total Protein 8.3 g/dL (6.5-8.0); Triglycerides 78 mg/dL (<150)
== END 2024-02-06 09:42 | disposition home or self-care (01) ==
LOC: HO.LAB 09:41
PROVIDERS: PCP Internal Medicine; Visit Provider Internal Medicine
DX: R73.01 Impaired fasting glucose (principal); E78.00 Pure hypercholesterolemia, unspecified
CPT/HCPCS: 36415; 80053; 80061; 83036

== ENCOUNTER 2024-02-06 09:58 | Day surgery (SDC) | payer BC, SELFPAY ==
--- NOTE | 2024-02-04 15:17 | HO.ANESPROP2 ---
Documented by User: Rowena Phillips NP 02/04/24 15:19 HPI - Anesthesia Eval Consult details Narrative: 54yo M for Colonoscopy PMFSH Active Problems Active Problems: All Active Problems (Updated 01/14/24 @ 13:45 by Stephania Torre MD) Hypercholesterolemia (Acute) Obstructive sleep apnea (Acute) Impaired fasting blood sugar (Acute) Cough (Acute) Family history of colorectal cancer (Acute) Umbilical hernia (Acute) Hypertension (Acute) Obesity (BMI 30-39.9) (Acute) Annual physical exam (Acute) Past Medical History Medical History (Updated 01/14/24 @ 13:45 by Stephania Torre MD) Hypercholesterolemia Obstructive sleep apnea Elevated blood sugar Colon cancer screening Blood pressure elevated without history of HTN GERD (gastroesophageal reflux disease) Family history of colorectal cancer Lumbar vertebral fracture Family History Family History Maternal Uncle Myocardial infarct Father Colon cancer Mother Small cell lung cancer Sister Bipolar 1 disorder Family history of problems with anesthesia: No Surgical History Surgical History History of umbilical hernia repair (12/08/23) History of appendectomy History of Problems with Anesthesia: No Social History Social History Housing: House Alcohol intake: current Alcohol intake frequency: holidays/special occasions only Patient Tobacco Use Status: Former Tobacco user Years Smoked: quit 1987 1 pack week 6months Use of substances other than those prescribed or required for medical reasons: No Are you DNR?: No Advance Directives: No Advance Directives Information Provided: Yes service: No Current occupational status: employed Cognitive needs: No Hearing needs: No Vision needs: No Meds Allergies Allergy/AdvReac Type Severity Reaction Status Date / Time Penicillins Allergy Mild Unknown Verified 01/15/24 14:27 Exam Pertinent Lab Results Pertinent Lab Results: Laboratory Tests 08/15/23 08/15/23 07:15 08:15 WBC 7.7 Hgb 15.5 Hct 48.5 Plt Count 244 Sodium 142 Potassium 4.5 Chloride 104 Carbon Dioxide 29 BUN 14 Creatinine 1.04 Assessment and Plan Assessment Anesthesia Assessment: Chart Reviewed Final Anesthetic Review Family History of Problems with Anesthesia: No History of Problems with Anesthesia: No Documented by User: Priyanka Shields MD 02/06/24 10:49 PMFSH Past Medical History Medical History (Updated 01/14/24 @ 13:45 by Stephania Torre MD) Hypercholesterolemia Obstructive sleep apnea Elevated blood sugar Colon cancer screening Blood pressure elevated without history of HTN GERD (gastroesophageal reflux disease) Family history of colorectal cancer Lumbar vertebral fracture Family History Family History Maternal Uncle Myocardial infarct Father Colon cancer Mother Small cell lung cancer Sister Bipolar 1 disorder Surgical History Surgical History History of umbilical hernia repair (12/08/23) History of appendectomy Social History Social History Housing: House Alcohol intake: current Alcohol intake frequency: holidays/special occasions only Patient Tobacco Use Status: Former Tobacco user Years Smoked: quit 1987 1 pack week 6months Use of substances other than those prescribed or required for medical reasons: No Are you DNR?: No Advance Directives: No Advance Directives Information Provided: Yes service: No Current occupational status: employed Cognitive needs: No Hearing needs: No Vision needs: No Meds Allergies Allergy/AdvReac Type Severity Reaction Status Date / Time Penicillins Allergy Mild Unknown Verified 01/15/24 14:27 Exam Airway Mallampati Class: II TM Dist: >3cm Neck ROM: Full Heart: rrr Lungs: cta Assessment and Plan Assessment Anesthesia Assessment: Anesthesia Plan Discussed Final Anesthetic Review NPO: Yes ASA Class: III Final Preanesthetic Review: No Changes in Pt Med Stat, Meds/Allgs Chart Reviewed and Consent Obtained/Reviewed Patient Risk: Low Procedure Risk: Low Anesthetic Plan Anesthetic Plan: MAC: Disposition: Standard PACU
[2024-02-06 10:17] VITALS: BMI 31.8
--- NOTE | 2024-02-06 10:18 | MHC.SHP ---
Pre-Procedural Eval Section A - 24 Hr Update-Section A only Date of Service: 02/06/24 The patient is an INPATIENT: No The patient has been examined within 24 hours of the surgical procedure. The History & Physical has been completed within 30 days and I have reviewed it.: No Section B - Complete if H&P > 30 days Chief Complaint: Colon cancer screening, family history of colon ca Relevant Family History (Specify if Yes): Yes Relevant Social History: Tobacco Use (Former smoker) Present Medications: see Short Stay Collaborative assessment Medical History: Significant History (Family history of colorectal cancer Lumbar vertebral fracture, sleep apnea) History of Previous Operations: Relevant previous surgery/procedure and date(s) (History of appendectomy) Allergies: Allergies Allergy/AdvReac Type Severity Reaction Status Date / Time Penicillins Allergy Mild Unknown Verified 01/15/24 14:27 Review of Systems Sugical H&P ROS: Negative: Constitution, Cardiovascular, Respiratory and Gastrointestinal Exam Surgical H&P Exam: Normal: Heart, Normal: Lungs, Normal: Extremities and Normal: Abdomen Plan Diagnosis/Plan: Unchanged I have reviewed the history and physical and performed a pertinent physical examination on my patient. No changes have occurred unless specified. Time Spent With Patient Time: Total time managing care of this patient today ____ minutes.
[2024-02-06 10:21] VITALS: BP 128/80; PULSE 82; RESP 20; TEMP 36.4; O2SAT 95
--- NOTE | 2024-02-06 10:54 | W.PM.OPN ---
Operative Note Operative Note Date of Service: 02/06/24 Narrative: COLONOSCOPY TILL CECUM WITH SNARE POLYPECTOMY SUBMUCOSAL INJECTION AND HEMOCLIP PLACEMENT Pre-op diagnosis: Colon cancer screening, family history of colon cancer (Dad in his 70's) and polyps (sister). Post-op diagnosis:? Colon polyps, Diverticulosis, hemorrhoids Endoscopist:? Nicole Moody MD Anesthesia:?MAC Consent: Indications for the procedure and potential complications of bleeding, perforation, reaction to medications and missed diagnosis were discussed with the patient and informed consent was obtained. Instrument: Olympus CF H 190 L variable stiffness adult colonoscope Monitoring: Vital signs and clinical assessment, intermittent blood pressure monitoring, continuous EKG monitoring, Pulse oximetry and Carbon Dioxide monitoring were done throughout the procedure. Please see anesthesia flowsheet. Colon withdrawl time was 25 minutes. Procedure: The patient was placed in the left lateral decubitis position and pre-procedure medications were administered. After a digital rectal examination of the ano-rectum, the video colonoscope was inserted into the rectum and advanced through the colon to the cecum. The colonoscope was slowly withdrawn in a retrograde panoramic fashion and the colon mucosa was carefully examined including a retroflexed view of the rectum. Findings and interventions are described below. Procedure Difficulty: without difficulty Findings: Terminal Ileum: Not evaluated Cecum: Normal Ascending Colon: A 2 cms flat polyp in the mid AC at 85 cms. Polyp was raised with 4 cc of Eleview and removed with a stiif hot snare. Polypectomy site was closed with 1 hemoclip and marked by Kareen ink Transverse Colon: Normal Descending Colon: Moderate diverticulosis Sigmoid Colon: A 7-8 mm sessile polyp - removed with a cold snare. Moderate diverticulosis Rectum: Normal Ano-rectum: Moderate internal hemorrhoids Colon preparation: Excellent, after some irrigation. There was scattered undigested vegetable matter which could not be suctioned. [place] Bowel Preparation Scale Right colon; 3 Transverse colon: 3 Left colon; 3 (0 = Unprepared colon segment with mucosa not seen due to solid stool that cannot be cleared. 1 = Portion of mucosa of the colon segment seen, but other areas of the colon segment not well seen due to staining, residual stool and/or opaque liquid. 2 = Minor amount of residual staining, small fragments of stool and/or opaque liquid, but mucosa of colon segment seen well. 3 = Entire mucosa of colon segment seen well with no residual staining, small fragments of stool or opaque liquid) Impression and Post Procedure Diagnosis: Colonoscopy Findings: One medium sized and one small polyps were removed Moderate diverticulosis seen in the left colon Moderate hemorrhoids on retroflexed exam. Plan: Pt has a FU appointment on 02/20/24 with Ana Syed NP Repeat Colonoscopy in 2 years if polyps are adenomatous (to check polypectomy site in the ascending colon) and 5 years if polyps are hyperplastic. Above findings were reviewed with the patient and relevant handouts were given and the discharge area.
[2024-02-06] MEDS: Lactated Ringers 1,000 ML 100 ML IVCONT (10:57)
[2024-02-06 11:36] VITALS: BP 106/76; PULSE 72; RESP 16; TEMP 36.2; O2SAT 94
[2024-02-06 11:51] VITALS: BP 136/88; PULSE 63; RESP 18; TEMP 36.1; O2SAT 96
== END 2024-02-06 12:15 | disposition home or self-care (01) ==
PROVIDERS: PCP Internal Medicine; Visit Provider Internal Medicine Gastroenterology
PROC: 0DJD8ZZ Inspection of Lower Intestinal Tract, Via Natural or Artificial Opening Endoscopic (ICD-10-PCS; CPT 45378; principal; 2024-02-06 11:00)
DX: Z12.11 Encounter for screening for malignant neoplasm of colon (principal); Z80.0 Family history of malignant neoplasm of digestive organs; Z83.719 Family history of colon polyps, unspecified; D12.2 Benign neoplasm of ascending colon; D12.5 Benign neoplasm of sigmoid colon; K57.30 Diverticulosis of large intestine without perforation or abscess without bleeding; K64.8 Other hemorrhoids; K21.9 Gastro-esophageal reflux disease without esophagitis; I10 Essential (primary) hypertension; E78.00 Pure hypercholesterolemia, unspecified; R73.9 Hyperglycemia, unspecified; G47.33 Obstructive sleep apnea (adult) (pediatric); Z88.0 Allergy status to penicillin; Z87.891 Personal history of nicotine dependence
CPT/HCPCS: 45385; 45381; 88305; J2704

== ENCOUNTER → 2024-02-06 09:58 | Outpatient (BNV) | payer BC, SELFPAY | PROVIDERS: PCP Internal Medicine; Visit Provider Internal Medicine Gastroenterology | DX: Z12.11 Encounter for screening for malignant neoplasm of colon (principal); K63.5 Polyp of colon; K57.90 Diverticulosis of intestine, part unspecified, without perforation or abscess without bleeding; K64.8 Other hemorrhoids; Z80.0 Family history of malignant neoplasm of digestive organs | CPT/HCPCS: 45381; 45385 ==

== ENCOUNTER 2024-02-20 14:49 | Outpatient (AMB) | payer BC, SELFPAY ==
--- NOTE | 2024-02-20 14:51 | A.OFFVIS_ITS ---
Intake Vital Signs 02/20/24 14:55 Height 6 ft Weight 234 lb BMI 31.7 BP 141/69 H Blood Pressure Location Lt brachial Position Sitting Pulse 59 Intake Visit Reasons: s/p colon Intake Note: Patient follow up for Colonoscopy results. Patient denies any GI issues. Travel Accommodation Inspector Required: No Accompanied by: Self / Same As Patient Allergies Penicillins Allergy (Mild, Verified 01/15/24 14:27) Unknown HPI s/p colon HPI Details LAST VISIT Colon cancer screening Patient denies any GI, cardiac or respiratory symptoms.? Denies any issues with anesthesia in the past.? History of sleep apnea not using CPAP.? No history infectious diseases in the past or present.? Not on any anticoagulation therapy.? As mentioned above in HPI patient's father was diagnosed 7 years ago with colorectal cancer. He believes he had colon resection but no chemo. Patient's sister had polyps.? Discussed at length the pre-procedure,? prep, diet & medications as well as what to expect prior, during and after the procedure.?? Stressed the importance of good bowel prep. ?Recommended the use of Vaseline or Calmoseptine OTC & baby wipes with bowel movements to promote comfort.? ?Patient verbalizes understanding and agrees to plan of care.? He was given the opportunity to ask questions and all questions answered.? We will see him after the procedure.? GERD (gastroesophageal reflux disease) Family history of colorectal cancer Plan Medications New bisacodyl (Dulcolax (bisacodyl)) take 2 tabs at noon the day before your colonoscopy 10 mg (2 x 5 mg) PO ONCE 2 tabs 0RF 1 da y Z12.11 polyethylene glycol 3350 (Miralax) As directed by gastroenterology department at [facility] 238 grams PO ONCE 238 grams 0RF Z12.11 COLONOSCOPY Findings: Terminal Ileum: Not evaluated Cecum: Normal Ascending Colon: A 2 cms flat polyp in the mid AC at 85 cms. Polyp was raised with 4 cc of Eleview and removed with a stiif hot snare. Polypectomy site was closed with 1 hemoclip and marked by Kareen ink Transverse Colon: Normal Descending Colon: Moderate diverticulosis Sigmoid Colon: A 7-8 mm sessile polyp - removed with a cold snare. Moderate diverticulosis Rectum: Normal Ano-rectum: Moderate internal hemorrhoids Colon preparation: Excellent, after some irrigation. There was scattered undigested vegetable matter which could not be suctioned. [place] Bowel Preparation Scale Right colon; 3 Transverse colon: 3 Left colon; 3 (0 = Unprepared colon segment with mucos a not seen due to solid stool that cannot be cleared. 1 = Portion of mucosa of the colon segme nt seen, but other areas of the colon segment not well seen due to staining, residual stool and/or opaque liquid. 2 = Minor amount of residual staining, s mall fragments of stool and/or opaque liquid, but mucosa of colon segment seen well. 3 = Entire mucosa of colon segment seen well with no residual staining, small fragments of stool or opaque liquid) Impression and Post Procedure Diagnosis: Colonoscopy Findings: One medium sized and one small polyps were removed Moderate diverticulosis seen in the left colon Moderate hemorrhoids on retroflexed exam. Plan: Repeat Colonoscopy in 2 years if polyps are adenomatous (to check polypectomy site in the ascending colon) and 5 years if polyps are hyperplastic. PATHOLOGY RESULTS: Diagnosis A. Colon, ascending at 85 cm, polyp: Sessile serrated lesion/polyp without dysplasia. B. Colon, sigmoid, polyp: Sessile serrated lesion/polyp without dysplasia. TODAY'S VISIT Patient is here today for follow-up and to discuss colonoscopy results. Patient denies any ill effects from the prep, anesthesia or procedure itself. Reports to be doing fairly well. Denies any melena, hematochezia, unintentional weight loss or ribbon like stools. Sessile serrated polyp found in ascending colon 1 clip placed. Patient reports that he will be flying next week and does not remember getting any card stating that he has clip. Patient will go home and check all his discharge paperwork and call our office. Will speak with Dr. Moody to right and note. Sigmoid colon small sessile serrated polyp without dysplasia. Moderate diverticulosis of sigmoid colon found with moderate hemorrhoids. Patient reports that he is moving his bowels without any issues., however sometimes he reports that he does not feel like he is emptying completely. Patient denies any dyspepsia, dysphagia or odynophagia. ON LICENSE OF [facility] Medical History (Updated 02/20/24 @ 20:20 by Debo Syed, [facility]) Hemorrhoids without complication Diverticulosis Tubular adenoma of colon Hypercholesterolemia Obstructive sleep apnea Elevated blood sugar Colon cancer screening Blood pressure elevated without history of HTN GERD (gastroesophageal reflux disease) Family history of colorectal cancer Lumbar vertebral fracture Surgical History History of umbilical hernia repair (12/08/23) History of appendectomy Family History Maternal Uncle Myocardial infarct Father Colon cancer Mother Small cell lung cancer Sister Bipolar 1 disorder Social History Housing: House Alcohol intake: current Alcohol intake frequency: holidays/special occasions only Patient Tobacco Use Status: Former Tobacco user Years Smoked: quit 1986 1 pack week 6months service: No Current occupational status: employed Cognitive needs: No Hearing needs: No Vision needs: No Review of Systems Const Denies weight gain and Denies weight loss ENT Reports no additional complaints, Denies dysphagia and Denies odynophagia Card Reports no additional complaints Resp Reports no additional complaints GI Denies abdominal pain, Denies belching, Denies melena, Denies bloating, Denies change in bowel habits, Denies dysphagia, Denies excessive flatus, Denies dyspepsia, Denies heartburn, Denies diarrhea, Denies loose stools, Denies nausea, Denies odynophagia and Denies vomiting Reports no additional complaints Musc Reports no additional complaints Neuro Reports no additional complaints Psych Reports no additional complaints Endo Reports no additional complaints Physical Exam Vital Signs: Last Vital Signs Pulse 59 02/20/24 14:55 BP 141/69 H 02/20/24 14:55 BMI result Body Mass Index 31.7 Const General: healthy appearing, no acute distress and well developed Nutritional Appearance: obese Orientation/consciousness: patient oriented x3 Resp Effort & Inspection: normal respiratory effort, able to speak in complete sentences, no tracheal deviation and symmetric chest movement Auscultation: clear to auscultation bilaterally Cardio Rate: regular rate GI Inspection: Yes normal to inspection, No distended and Yes obesity Palpation (GI): Soft to palpation, not firm, nontender and No hepatosplenomegaly present Auscultation: normal bowel sounds General: Yes no CVA tenderness Back/Spine/Pelvis Back: no CVA tenderness Skin General skin exam: elasticity normal, turgor normal and dry skin Neuro General: patient oriented x3 Psych Appearance: grossly normal Mental Status: mental status grossly normal Affect: normal affect Assessment & Plan Assessment & Plan (1) Tubular adenoma of colon: Code(s): D12.6 - Benign neoplasm of colon, unspecified (2) Diverticulosis: Code(s): K57.90 - Diverticulosis of intestine, part unspecified, without perforation or abscess without bleeding (3) Hemorrhoids without complication: Code(s): K64.9 - Unspecified hemorrhoids (4) Family history of colorectal cancer: Code(s): Z80.0 - Family history of malignant neoplasm of digestive organs (5) Status post colonoscopy: Code(s): Z98.890 - Other specified postprocedural states Plan As mentioned above in HPI patient was found to have to sessile serrated polyps and will return for colorectal screening in 2 years, sooner if clinically necessary. Family history of CRC. Patient was encouraged to increase fluid intake and activity to promote better bowel motility. Patient was encouraged to take fiber supplements I will give him script for MiraLax to help her move his bowels better. Patient can take [id number] probiotics. High-fiber diet encouraged. He will return in the office in 2 years for colorectal screening, sooner if he will experience any GI concerning symptoms. Patient is agreeable to this plan and verbalizes understanding of instructions. He was given the opportunity to ask questions and all questions answered. Thank you for allowing me to participate in his care Medications: New polyethylene glycol 3350 (Miralax) 17 grams PO DAILY 510 grams 2RF Coding Level of Care Code Est Pt Level 3 (64744) Diagnoses Tubular adenoma of colon D12.6 Diverticulosis K57.90 Hemorrhoids without complication K64.9 Family history of colorectal cancer Z80.0 Status post colonoscopy Z98.890 Time Spent (min) 30 Comment 20 minutes spent with patient and additional 10 minutes spent reviewing his records
[2024-02-20 14:55] VITALS: BP 141/69; PULSE 59; BMI 31.7
== END 2024-02-20 16:09 | disposition home or self-care (01) ==
PROVIDERS: PCP Internal Medicine; Visit Provider Nurse Practitioner Family
DX: D12.6 Benign neoplasm of colon, unspecified (principal); K57.90 Diverticulosis of intestine, part unspecified, without perforation or abscess without bleeding; K64.9 Unspecified hemorrhoids; Z80.0 Family history of malignant neoplasm of digestive organs; Z98.890 Other specified postprocedural states
CPT/HCPCS: 99213

== ENCOUNTER → 2024-02-20 14:49 | Outpatient (BNVA) | payer BC, SELFPAY | PROVIDERS: PCP Internal Medicine; Visit Provider Nurse Practitioner Family ==

== ENCOUNTER 2024-04-22 14:19 | Outpatient (AMB) | payer BC, SELFPAY ==
[2024-04-22 14:20] VITALS: BP 110/78; PULSE 67; O2SAT 98; BMI 33.2
--- NOTE | 2024-04-22 14:20 | MHC.PC.OV ---
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 Last seen in January 2024. Colonoscopy done in January 2024 advised to retest in 2 years [facility] Medical History (Updated 04/22/24 @ 14:35 by Stephania Torre MD) Hemorrhoids without complication Diverticulosis Tubular adenoma of colon Hypercholesterolemia Obstructive sleep apnea Elevated blood sugar Colon cancer screening Blood pressure elevated without history of HTN GERD (gastroesophageal reflux disease) Family history of colorectal cancer Lumbar vertebral fracture Surgical History History of umbilical hernia repair (12/08/23) History of appendectomy Family History Maternal Uncle Myocardial infarct Father Colon cancer Mother Small cell lung cancer Sister Bipolar 1 disorder Social History Housing: House Alcohol intake: current Alcohol intake frequency: holidays/special occasions only Patient Tobacco Use Status: Former Tobacco user Years Smoked: quit 1987 1 pack week 6months service: No Current occupational status: employed Cognitive needs: No Hearing needs: No Vision needs: No Questionnaire PHQ-9 Over the last 2 weeks, how often have you been bothered by any of the following problems? 1. Little interest or pleasure in doing things: not at all 2. Feeling down, depressed, or hopeless: not at all 3. Trouble falling or staying asleep, or sleeping too much: not at all 4. Feeling tired or having little energy: not at all 5. Poor appetite or overeating: not at all 6. Feeling bad about yourself - or that you are a failure or have let yourself or your family down: not at all 7. Trouble concentrating on things, such as reading the newspaper or watching television: not at all 8. Moving or speaking so slowly that other people could have noticed. Or the opposite - being so fidgety or restless that you have been moving around a lot more than usual: not at all 9. Thoughts that you would be better off or of hurting yourself in some way: not at all Total score: 0 Depression Screening Interpretation: Negative Depression Screening Done: Yes Source: Developed by Drs. Eric Watson, Yoselin Carranza, French Navas and colleagues, with an educational bruce from [employer]. Thrive Questionnaire Date Thrive assessed: 01/14/24 I am a: Patient What is your living situation today?: I have a steady place to live Within the past 12 months, did the food you bought not last and you didn't have the money to get more?: Never true Within the past 12 months, did you worry whether your food would run out before you got money to buy more?: Never true Do you have trouble paying for medicines?: No Do you have trouble getting transportation to medical appointments?: No Do you have trouble paying your heating and electricity bill?: No Do you have trouble taking care of your child, family member or friend?: No Do you have trouble with day-to-day activities such as bathing, preparing meals, shopping, managing finances, etc.?: No Are you currently unemployed and looking for a job?: No Are you interested in more education?: No Please select the resources that you would like help with: None THRIVE Score: 0 AUDIT C Alcohol Use Questionnaire (AUDIT-C) 1. How often do you have a drink containing alcohol?: Monthly or less 2. How many drinks containing alcohol do you have on a typical day when you are drinking?: 1 or 2 3. How often do you have six or more drinks on one occasion?: Never Total Score: 1 BARBER-7 AMB Questionnaire BARBER-7 Date BARBER - 7 assessed: 01/14/24 Source: Developed by Drs. Eric Watson, Yoselin Carranza, French Navas and colleagues, with an educational bruce from [employer]. Physical exam (Primary Care) Vital Signs: Last Vital Signs Pulse 67 04/22/24 14:20 BP 110/78 04/22/24 14:20 Pulse Ox 98 04/22/24 14:20 Oxygen Delivery Method Room Air 04/22/24 14:20 BMI result Body Mass Index 33.2 Tobacco/Smoking Status: Tobacco use Status Tobacco use date assessed 04/22/24 04/22/24 14:26 Patient Tobacco Use Status Former Tobacco user 04/22/24 14:26 PHQ-9: PHQ-9 Score PHQ-9: Total score 0 04/22/24 14:26 Depression Screening Interpretation: Negative Thrive Assessment: Date of Thrive Assessment Date Thrive assessed 01/14/24 04/22/24 14:26 Const General: alert; No acute distress Eyes Conjunctivae: conjunctivae normal Resp Auscultation: clear to auscultation bilaterally Cardio Rate: regular rate Rhythm: regular rhythm GI Inspection: Yes normal to inspection Extrem General: Yes normal to inspection and No edema Assessment and Plan Assessment & Plan (1) Tubular adenoma of colon: Code(s): D12.6 - Benign neoplasm of colon, unspecified Plan: Colonoscopy done early this year and was advised repeat testing in 2 years (2) Hypercholesterolemia: Code(s): E78.00 - Pure hypercholesterolemia, unspecified Plan: Avoid fried foods, chicken skin, eggs, butter margarine, pastries and meat. Be it pork or beef they have a lot of cholesterol LDL goal of less than 130 and triglyceride of less than 150. January 2024 last blood work diet controlled only (3) Obstructive sleep apnea: Comment: Sleep study done 08/21/2023 showing severe. Obstructive sleep apnea AHI 30 advised CPAP auto PAP 6-20 Code(s): G47.33 - Obstructive sleep apnea (adult) (pediatric) (4) Impaired fasting blood sugar: Code(s): R73.01 - Impaired fasting glucose Plan: Decrease the amount of carbohydrate intake, pasta, bread, rice and potatoes are all sugar and that is aside from all the sweet stuff, remember that fruits are good but they are Sweet also. Hemoglobin A1c is 6.0 (5) Hypertension: Code(s): I10 - Essential (primary) hypertension Plan: Continue with blood pressure medication. Decrease salt intake and exercise on lisinopril hydrochlorothiazide 10/12.5 mg once a day (6) Obesity (BMI 30-39.9): Code(s): E66.9 - Obesity, unspecified Plan: Diet and exercise (7) LFT elevation: Code(s): R7. - Other specified abnormal findings of blood chemistry Orders: Orders Hepatitis B,C Profile Today - Other specified abnormal findings of blood chemistry Comprehensive Met. Panel Today R7 - Other specified abnormal findings of blood chemistry Free T4 (Free Thyroxine) Today R73.01 - Impaired fasting glucose US abdomen complete Today - Other specified abnormal findings of blood chemistry Medications: Refilled [AUTOPAP 6-20 cm H20 heated and supplieshumidified AIR] As directed 1 ea 0RF G47.33 - Obstructive sleep apnea (adult) (pediatric) [AUTOPAP 6-20 mm HG] As directed 1 ea 0RF G47.33 - Obstructive sleep apnea (adult) (pediatric) Coding Level of Care Code Est Pt Level 4 (53342) Diagnoses Tubular adenoma of colon D12.6 Hypercholesterolemia E78.00 Obstructive sleep apnea G47.33 Impaired fasting blood sugar R73.01 Hypertension I10 Obesity (BMI 30-39.9) E66.9 LFT elevation
== END 2024-04-22 14:52 | disposition home or self-care (01) ==
PROVIDERS: PCP Internal Medicine; Visit Provider Internal Medicine
DX: E78.00 Pure hypercholesterolemia, unspecified (principal); G47.33 Obstructive sleep apnea (adult) (pediatric); R73.01 Impaired fasting glucose; Z86.010 Personal history of colon polyps; I10 Essential (primary) hypertension; R79.89 Other specified abnormal findings of blood chemistry
CPT/HCPCS: 99214

== ENCOUNTER 2024-05-10 08:21 | Outpatient (REF) | payer BC, SELFPAY ==
--- NOTE | ~2024-05-10 | US_ITS ---
EXAMINATION: US ABDOMEN COMPLETE CLINICAL INFORMATION: Other specified abnormal findings of blood chemistry. Elevated liver function tests. COMPARISON: None available. TECHNIQUE: Real-time imaging of the abdominal viscera. FINDINGS: PANCREAS: Normal. ABDOMINAL AORTA: The proximal, mid, and distal segments are normal in caliber. INFERIOR VENA CAVA: Visualized portions are normal. LIVER: The liver is normal in size. The liver contour is normal. Diffuse increased echogenicity of the liver parenchyma. No focal hepatic lesion. There is no intrahepatic biliary duct dilatation seen. GALLBLADDER: Normal. The gallbladder is physiologically distended without evidence of stones, sludge, polyps, wall thickening or pericholecystic fluid. COMMON BILE DUCT: Normal in caliber measuring 0.4 cm in diameter. RIGHT KIDNEY: Normal. No hydronephrosis. No renal calculi or focal parenchymal lesions. The kidney measures 11.5 cm in maximum dimension. LEFT KIDNEY: Normal. No hydronephrosis. No renal calculi or focal parenchymal lesions. The kidney measures 11.7 cm in maximum dimension. SPLEEN: Normal. The spleen measures 11.4 cm in maximum dimension. FREE FLUID: None. US/US abdomen complete IMPRESSION: Diffuse increased echogenicity of the liver parenchyma, nonspecific, but most commonly seen in the setting of hepatic steatosis.
== END 2024-05-10 08:22 | disposition home or self-care (01) ==
LOC: HO.US 08:21
PROVIDERS: PCP Internal Medicine; Visit Provider Internal Medicine
DX: R79.89 Other specified abnormal findings of blood chemistry (principal)
CPT/HCPCS: 76700

== ENCOUNTER 2024-09-16 13:26 | Outpatient (AMB) | payer BC, SELFPAY ==
--- NOTE | 2024-09-16 13:33 | MHC.PC.OV ---
Vital Signs 09/16/24 13:35 Height 6 ft Weight 245 lb 4 oz BMI 33.3 BP 110/74 Blood Pressure Location Lt brachial Position Sitting Pulse 69 Pulse Source Pulse Oximeter Pulse Oximetry (%) 99 Oxygen Delivery Method Room Air Intake Visit Reasons: Annual Exam Intake Note: Patient is here today for a physical. 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: No Switch Foreman: Not Required per policy Accompanied by: Self / Same As Patient Allergies Penicillins Allergy (Mild, Verified 09/16/24 13:34) Unknown Medication List - Last Reconciled 09/16/24 by Stephania Torre MD [AUTOPAP 6-20 cm H20 heated and supplieshumidified AIR As directed] blood pressure monitor (Blood Pressure Kit) As directed [heated humidifier Lifetime] lisinopril-hydrochlorothiazide 10-12.5 mg 1 tab PO DAILY polyethylene glycol 3350 (Miralax) 17 grams PO DAILY Tobacco use date assessed: 09/16/24 Dental Screening Dental Screen Date: 04/22/24 HPI Annual Exam HPI Details 43 year old obese female with GERD iron deficiency anemia and generalized anxiety disorder coming in for physical exam. Patient was last seen in January 2024 patient follows up with comprehensive care for syphilis has had 1 injection or penicillin. [facility] Medical History (Updated 09/16/24 @ 14:30 by Stephania Torre MD) Hemorrhoids without complication Diverticulosis Tubular adenoma of colon Hypercholesterolemia Obstructive sleep apnea Elevated blood sugar Colon cancer screening Blood pressure elevated without history of HTN GERD (gastroesophageal reflux disease) Family history of colorectal cancer Lumbar vertebral fracture Surgical History History of umbilical hernia repair (12/08/23) History of appendectomy Family History (Updated 09/16/24 @ 13:38 by SERA Brasher) Maternal Uncle Myocardial infarct Father Colon cancer Mother Small cell lung cancer Sister Bipolar 1 disorder Other Mental health disorder Social History (Updated 09/16/24 @ 14:02 by Stephania Torre MD) Housing: House Alcohol intake: current Alcohol intake frequency: holidays/special occasions only Comment: glass of wine once a months Patient Tobacco Use Status: Former Tobacco user Years Smoked: quit 1987 1 pack week 6months e-Cigarette/Vaping Use: Never Used service: No Current occupational status: employed Cognitive needs: No Hearing needs: No Vision needs: No Questionnaire PHQ-9 Over the last 2 weeks, how often have you been bothered by any of the following problems? 1. Little interest or pleasure in doing things: not at all 2. Feeling down, depressed, or hopeless: not at all 3. Trouble falling or staying asleep, or sleeping too much: not at all 4. Feeling tired or having little energy: not at all 5. Poor appetite or overeating: not at all 6. Feeling bad about yourself - or that you are a failure or have let yourself or your family down: not at all 7. Trouble concentrating on things, such as reading the newspaper or watching television: not at all 8. Moving or speaking so slowly that other people could have noticed. Or the opposite - being so fidgety or restless that you have been moving around a lot more than usual: not at all 9. Thoughts that you would be better off or of hurting yourself in some way: not at all Total score: 0 Depression Screening Interpretation: Negative Depression Screening Done: Yes Source: Developed by Drs. Eric Watson, Ysoelin Carranza, French Navas and colleagues, with an educational bruce from [employer]. Thrive Questionnaire Date Thrive assessed: 09/16/24 I am a: Patient What is your living situation today?: I have a steady place to live Within the past 12 months, did the food you bought not last and you didn't have the money to get more?: Never true Within the past 12 months, did you worry whether your food would run out before you got money to buy more?: Never true Do you have trouble paying for medicines?: No Do you have trouble getting transportation to medical appointments?: No Do you have trouble paying your heating and electricity bill?: No Do you have trouble taking care of your child, family member or friend?: No Do you have trouble with day-to-day activities such as bathing, preparing meals, shopping, managing finances, etc.?: No Are you currently unemployed and looking for a job?: No Are you interested in more education?: No Please select the resources that you would like help with: None Currently or been in a relationship where the following occur: No concerns reported THRIVE Score: 0 AUDIT C Alcohol Use Questionnaire (AUDIT-C) 1. How often do you have a drink containing alcohol?: Monthly or less 2. How many drinks containing alcohol do you have on a typical day when you are drinking?: 1 or 2 3. How often do you have six or more drinks on one occasion?: Never Total Score: 1 BARBER-7 AMB Questionnaire BARBER-7 Date BARBER - 7 assessed: 09/16/24 Feeling nervous, anxious, or on edge: 0 = Not at all Not being able to stop or control worryin = Not at all Worrying too much about different things: 0 = Not at all Trouble relaxin = Not at all Being so restless that it is hard to sit still: 0 = Not at all Becoming easily annoyed or irritable: 1 = Several days Feeling afraid as if something awful might happen: 0 = Not at all Total BARBER-7 score (0-4 normal; 5-9 mild; 10-14 moderate; 15-21 severe): 1 Source: Developed by Drs. Eric Watson, Yoselin Carranza, French Navas and colleagues, with an educational bruce from [employer]. Review of Systems Const Denies poor appetite and Denies weakness Eyes Denies no additional complaints ENT Reports Normal hearing present, Denies dizziness, Denies nasal congestion, Denies tinnitus and Denies sore throat Card Denies chest pain, Denies syncope, Denies rapid heart rate and Denies dyspnea Resp Denies cough and Denies dyspnea GI Denies change in stool character, Reports constipation, Denies diarrhea, Denies nausea and Denies vomiting Denies dysuria and Denies urinary frequency Neuro Reports Normal hearing present, Denies confusion, Denies dizziness, Denies syncope and Denies weakness Psych Denies confusion Physical exam (Primary Care) Vital Signs: Last Vital Signs Pulse 69 09/16/24 13:35 BP 110/74 09/16/24 13:35 Pulse Ox 99 09/16/24 13:35 Oxygen Delivery Method Room Air 09/16/24 13:35 BMI result Body Mass Index 33.3 Tobacco/Smoking Status: Tobacco use Status Tobacco use date assessed 09/16/24 09/16/24 13:40 Patient Tobacco Use Status Former Tobacco user 09/16/24 13:40 e-Cigarette/Vaping Use Never Used 09/16/24 13:40 PHQ-9: PHQ-9 Score PHQ-9: Total score 0 09/16/24 13:47 Depression Screening Interpretation: Negative Thrive Assessment: Date of Thrive Assessment Date Thrive assessed 09/16/24 09/16/24 13:40 Currently or been in a relationship where the following occur: No concerns reported Const General: No confusion Orientation/consciousness: No confusion HENMT Other: impacted cerumen bilateral Head: Yes normocephalic Ears: external ears normal Face and sinus: Yes normal facial exam Mouth: moist mucous membranes Throat: Yes tonsils normal Eyes Conjunctivae: conjunctivae normal Pupils: Equal, round and reactive pupils present and Pupil accommodation reflex normal Direct Ophthalmoscopy: normal light reflex Neck Neck: No lymphadenopathy Thyroid: Thyroid normal Chest Chest palpation & inspection: normal inspection of the chest Resp Effort & Inspection: normal respiratory effort and no audible wheezes Auscultation: clear to auscultation bilaterally, no crackles, no wheezes and lung sounds not diminished Cardio Rate: regular rate Rhythm: regular rhythm Peripheral pulses: radial pulses present and dorsalis pedis present GI Other: guaiac negative normal prostate Palpation (GI): no masses Auscultation: normal bowel sounds and normoactive bowel sounds Rectal Exam - Male: Yes deferred Male General Exam: Yes normal external exam Skin General skin exam: no rashes or lesions noted Rashes: no rashes Neuro General: No confusion Cranial nerves: Yes Equal, round and reactive pupils present and Yes Normal hearing present Cognition (Neuro): normal cognition Gait exam (Neuro): Normal gait present Motor exam (neuro): 5/5 motor strength present throughout Deep tendon reflexes (DTR's): Right brachioradialis reflex intensity grade: 2+, Left brachioradialis reflex intensity grade: 2+, Right patellar reflex intensity grade: 2+ and Left patellar reflex intensity grade: 2+ Extrem General: No edema Office Procedures Flu Questionnaire Does the patient have a severe egg allergy?: No Does the patient have severe life threatening allergies?: No Does the patient have a fever or illness today?: No Has the patient ever had Guillain-Maxwelton Syndrome?: No Has the patient ever had any past reaction to a flu shot?: No Immunizations Fluarix Triv 5935-6176 (PF) 45 mcg (15 mcg x 3)/0.5 mL IM syringe Performing Provider: Stephania Torre MD [place] [facility] Administered by: SERA Erickson on 09/16/24 13:46 Dose Route Admin Location Dispensed Lot Number Expiration Date ND Digital Marketing Program Manager 0.5 mL IM Left Deltoid 0.5 mL [id number] 05/30/25 [id number] VIS Given Date VIS Provided VIS Publication Date 09/16/24 Single Vaccine 21 Eligibility Eligibility Date Funding Source Not [facility] Eligible 09/16/24 Private Coding Level of Care Code Est Pt Prev Care 40-64y(41339) Diagnoses Annual physical exam Z00.00 Obesity (BMI 30-39.9) E66.9 Hypertension I10 Impaired fasting blood sugar R73.01 Obstructive sleep apnea G47.33 Hypercholesterolemia E78.00 Hepatic steatosis K76.0 Numbness of right hand R20.0 Impacted cerumen of both ears H61.23 Low back pain M54.50 Assessment & Plan Assessment & Plan (1) Annual physical exam: Code(s): Z00.00 - Encounter for general adult medical examination without abnormal findings Category: Medical Plan: Patient is advised to eat healthy, keep well hydrated, keep active and have adequate sleep. (2) Obesity (BMI 30-39.9): Code(s): E66.9 - Obesity, unspecified Category: Medical Plan: Diet and exercise (3) Hypertension: Code(s): I10 - Essential (primary) hypertension Category: Medical Plan: Continue with blood pressure medication. Decrease salt intake and exercise on lisinopril hydrochlorothiazide 10/12.5 mg once a day (4) Impaired fasting blood sugar: Code(s): R73.01 - Impaired fasting glucose Category: Medical Plan: Decrease the amount of carbohydrate intake, pasta, bread, rice and potatoes are all sugar and that is aside from all the sweet stuff, remember that fruits are good but they are Sweet also. (5) Obstructive sleep apnea: Comment: Sleep study done 08/21/2023 showing severe. Obstructive sleep apnea AHI 30 advised CPAP auto PAP 6-20 Code(s): G47.33 - Obstructive sleep apnea (adult) (pediatric) Category: Medical Plan: Discussion about CPAP (6) Hypercholesterolemia: Code(s): E78.00 - Pure hypercholesterolemia, unspecified Category: Medical Plan: Avoid fried foods, chicken skin, eggs, butter margarine, pastries and meat. Be it pork or beef they have a lot of cholesterol LDL goal of less than 130 and triglyceride of less than 150. Discussed about fatty liver. (7) Hepatic steatosis: Comment: May 2024 Code(s): K76.0 - Fatty (change of) liver, not elsewhere classified Category: Medical Plan: Low-fat diet and exercise (8) Numbness of right hand: Code(s): R20.0 - Anesthesia of skin Category: Medical Plan: discussed using the wrist brace and cxall if gettng worse - will do EMG, NCv (9) Impacted cerumen of both ears: Code(s): H61.23 - Impacted cerumen, bilateral Category: Medical Plan: will call of ear irrigation (10) Low back pain: Code(s): M54.50 - Low back pain, unspecified Category: Medical Plan: xr requested Orders: Orders Influenza [id number] Immunization Today Z23 - Encounter for immunization XR lumbar spine 2-3V Today M54.50 - Low back pain, unspecified Hemoglobin A1c Today R73.01 - Impaired fasting glucose
[2024-09-16 13:35] VITALS: BP 110/74; PULSE 69; O2SAT 99; BMI 33.3
== END 2024-09-16 14:37 | disposition home or self-care (01) ==
PROVIDERS: PCP Internal Medicine; Visit Provider Internal Medicine
DX: Z00.00 Encounter for general adult medical examination without abnormal findings (principal); E66.811 Obesity, class 1; Z68.33 Body mass index [BMI] 33.0-33.9, adult; I10 Essential (primary) hypertension; R73.01 Impaired fasting glucose; G47.33 Obstructive sleep apnea (adult) (pediatric); E78.00 Pure hypercholesterolemia, unspecified; K76.0 Fatty (change of) liver, not elsewhere classified; R20.0 Anesthesia of skin; H61.23 Impacted cerumen, bilateral; M54.50 Low back pain, unspecified

== ENCOUNTER → 2024-09-16 13:26 | Outpatient (BNVA) | payer BC, SELFPAY | PROVIDERS: PCP Internal Medicine; Visit Provider Internal Medicine | DX: Z00.01 Encounter for general adult medical examination with abnormal findings (principal); I10 Essential (primary) hypertension; E66.9 Obesity, unspecified; R73.01 Impaired fasting glucose; G47.33 Obstructive sleep apnea (adult) (pediatric); E78.00 Pure hypercholesterolemia, unspecified; K76.0 Fatty (change of) liver, not elsewhere classified; R20.0 Anesthesia of skin; H61.23 Impacted cerumen, bilateral; M54.50 Low back pain, unspecified; Z79.899 Other long term (current) drug therapy; Z23 Encounter for immunization | CPT/HCPCS: 90471; 90656; 96127 ==

== ENCOUNTER 2024-11-25 09:55 | Outpatient (REF) | payer BC, SELFPAY ==
[2024-11-25 10:57] LABS: Estimated Average Glucose 128 mg/dL; Hemoglobin A1C 174.9971 umol/L; Hemoglobin A1c % 6.1 % (<6.0); Total Hemoglobin (HGBA1C) 4009.9932 umol/L
[2024-11-25 11:25] LABS: Alanine Aminotransferase 39 U/L (0-40); Albumin Level 4.5 g/dL (3.5-5.0); Anion Gap 14 (12-20); Aspartate Amino Transferase 27 U/L (5-37); Bilirubin Total 0.7 mg/dL (0.0-1.0); Blood Urea Nitrogen 23 mg/dL (9-16); Calcium 9.4 mg/dL (8.4-10.2); Carbon Dioxide 27 mmol/L (22-29); Chloride 100 mmol/L (96-108); Estimated Glomerular Filt Rate > 60; Glucose Random 130 mg/dL (60-115); Potassium 3.7 mmol/L (3.3-5.1); Sodium 137 mmol/L (135-145); Total Protein 7.8 g/dL (6.5-8.0)
[2024-11-25 11:45] LABS: Free T4 (Free Thyroxine) 1.02 ng/dL (0.71-1.85)
[2024-11-25 11:57] LABS: Alkaline Phosphatase 77 U/L (39-117)
[2024-11-25 14:53] LABS: HBc Num1 0.09 S/CO (0.00-0.79); HBsAGNum1 0.35 S/CO (0.00-0.99); Hepatitis B Core Antibody Nonreactive (Nonreactive); Hepatitis B Surface Antigen Negative (Negative); ~HepC Num1 0.06 S/CO (0.00-0.79); ~Hepatitis B Surface Antibody NONREACTIVE (Nonreactive); ~Hepatitis C Antibody Nonreactive (Nonreactive)
== END 2024-11-25 09:56 | disposition home or self-care (01) ==
LOC: HO.LAB 09:55
PROVIDERS: PCP Internal Medicine; Visit Provider Internal Medicine
DX: M54.50 Low back pain, unspecified (principal); R73.01 Impaired fasting glucose; R79.89 Other specified abnormal findings of blood chemistry
CPT/HCPCS: 36415; 72100; 80053; 83036; 84439; 86704; 86706; 86803; 87340

== ENCOUNTER 2024-12-23 13:14 | Outpatient (AMB) | payer BC, SELFPAY ==
--- NOTE | 2024-12-23 13:18 | A.OFFPC_ITS ---
Vital Signs 12/23/24 13:19 Height 6 ft Weight 243 lb 4 oz BMI 33.0 BP 110/76 Blood Pressure Location Lt brachial Position Sitting Pulse 72 Pulse Source Pulse Oximeter Temp 97.1 F Temp Source Skin Pulse Oximetry (%) 94 Oxygen Delivery Method Room Air Intake Visit Reasons: Hypertension Intake Note: Patient is here to follow up on HTN. Center Punch Operator Required: No Director Government: Not Required per policy Accompanied by: Self / Same As Patient Allergies Penicillins Allergy (Mild, Verified 12/23/24 13:19) Unknown Tobacco use date assessed: 12/23/24 Dental Screening Dental Screen Date: 12/23/24 Did you have a dental visit in the last 12 months?: No Did you have a dental problem in the last 6 months where you did not have access to dental care?: No Was dental information given to patient?: Patient has dentist HPI Hypertension HPI Details The patient is a 54-year-old male presenting with concerns regarding hypertension and elevated blood sugar levels. He is currently prescribed lisinopril and hydrochlorothiazide for hypertension, which he reports has been effectively managing his blood pressure. The concern raised during the visit was the elevated blood sugar levels noted in the recent blood work conducted on November 25, during which the patient was experiencing symptoms of a suspected norovirus infection that included vomiting and gastrointestinal distress. The patient was not consuming any food due to sickness, and there is a consideration that the illness might have affected the lab results. The patient currently uses a CPAP device for obstructive sleep apnea but admits to inconsistent usage recently due to illness. He noticed a reduction to 0.8 AHIA events per hour, which demonstrates some control over the condition. There are no self-reported symptoms of leg swelling, although he acknowledges the need for dietary and lifestyle changes to address the high blood sugar levels. The patient concedes to occasional consumption of soda and other carbohydrates, which might contribute to elevated blood sugar levels. He expresses awareness of the potential long-term complications related to uncontrolled blood sugar, notably visually and vascularly. [facility] Medical History (Updated 12/23/24 @ 13:49 by Stephania Torre MD) Hemorrhoids without complication Diverticulosis Tubular adenoma of colon Hypercholesterolemia Obstructive sleep apnea Elevated blood sugar Colon cancer screening Blood pressure elevated without history of HTN GERD (gastroesophageal reflux disease) Family history of colorectal cancer Lumbar vertebral fracture Surgical History (Updated 12/23/24 @ 13:23 by SERA Brasher) History of colonoscopy History of umbilical hernia repair (12/08/23) History of appendectomy Family History Maternal Uncle Myocardial infarct Father Colon cancer Mother Small cell lung cancer Sister Bipolar 1 disorder Other Mental health disorder Social History Housing: House Alcohol intake: current Alcohol intake frequency: holidays/special occasions only Comment: glass of wine once a months Patient Tobacco Use Status: Former Tobacco user Years Smoked: quit 1987 1 pack week 6months e-Cigarette/Vaping Use: Never Used Second Hand Smoke Exposure: Yes service: No Current occupational status: employed Cognitive needs: No Hearing needs: No Vision needs: No Questionnaire PHQ-9 Over the last 2 weeks, how often have you been bothered by any of the following problems? 1. Little interest or pleasure in doing things: not at all 2. Feeling down, depressed, or hopeless: not at all 3. Trouble falling or staying asleep, or sleeping too much: not at all 4. Feeling tired or having little energy: not at all 5. Poor appetite or overeating: not at all 6. Feeling bad about yourself - or that you are a failure or have let yourself or your family down: not at all 7. Trouble concentrating on things, such as reading the newspaper or watching television: not at all 8. Moving or speaking so slowly that other people could have noticed. Or the opposite - being so fidgety or restless that you have been moving around a lot more than usual: not at all 9. Thoughts that you would be better off or of hurting yourself in some way: not at all Total score: 0 Depression Screening Interpretation: Negative Depression Screening Done: Yes Source: Developed by Drs. Eric Watson, Yoselin Carranza, French Navas and colleagues, with an educational bruce from [employer]. Thrive Questionnaire Date Thrive assessed: 12/23/24 I am a: Patient What is your living situation today?: I have a steady place to live Within the past 12 months, did the food you bought not last and you didn't have the money to get more?: Never true Within the past 12 months, did you worry whether your food would run out before you got money to buy more?: Never true Do you have trouble paying for medicines?: No Do you have trouble getting transportation to medical appointments?: No Do you have trouble paying your heating and electricity bill?: No Do you have trouble taking care of your child, family member or friend?: No Do you have trouble with day-to-day activities such as bathing, preparing meals, shopping, managing finances, etc.?: No Are you currently unemployed and looking for a job?: No Are you interested in more education?: No Please select the resources that you would like help with: None Currently or been in a relationship where the following occur: No concerns reported THRIVE Score: 0 AUDIT C Alcohol Use Questionnaire (AUDIT-C) 1. How often do you have a drink containing alcohol?: Monthly or less 2. How many drinks containing alcohol do you have on a typical day when you are drinking?: 1 or 2 3. How often do you have six or more drinks on one occasion?: Never Total Score: 1 BARBER-7 AMB Questionnaire BARBER-7 Date BARBER - 7 assessed: 12/23/24 Feeling nervous, anxious, or on edge: 0 = Not at all Not being able to stop or control worryin = Not at all Worrying too much about different things: 0 = Not at all Trouble relaxin = Not at all Being so restless that it is hard to sit still: 0 = Not at all Becoming easily annoyed or irritable: 0 = Not at all Feeling afraid as if something awful might happen: 0 = Not at all Total BARBER-7 score (0-4 normal; 5-9 mild; 10-14 moderate; 15-21 severe): 0 Source: Developed by Drs. Eric Watson, Yoselin Carranza, French Navas and colleagues, with an educational bruce from [employer]. Physical exam (Primary Care) Vital Signs: Last Vital Signs Temp 97.1 F 12/23/24 13:19 Pulse 72 12/23/24 13:19 BP 110/76 12/23/24 13:19 Pulse Ox 94 12/23/24 13:19 Oxygen Delivery Method Room Air 12/23/24 13:19 BMI result Body Mass Index 33.0 Tobacco/Smoking Status: Tobacco use Status Tobacco use date assessed 12/23/24 12/23/24 13:22 Patient Tobacco Use Status Former Tobacco user 12/23/24 13:22 e-Cigarette/Vaping Use Never Used 12/23/24 13:22 PHQ-9: PHQ-9 Score PHQ-9: Total score 0 12/23/24 13:50 Depression Screening Interpretation: Negative Thrive Assessment: Date of Thrive Assessment Date Thrive assessed 12/23/24 12/23/24 13:22 Currently or been in a relationship where the following occur: No concerns reported Const General: alert; No acute distress Eyes Conjunctivae: conjunctivae normal Resp Auscultation: clear to auscultation bilaterally Cardio Rate: regular rate Rhythm: regular rhythm GI Inspection: Yes normal to inspection Extrem General: Yes normal to inspection and No edema Coding Level of Care Code Est Pt Level 4 (10188) Diagnoses Type 2 diabetes mellitus with hyperglycemia E11.65 Hypercholesterolemia E78.00 Hypertension I10 Obesity (BMI 30-39.9) E66.9 Assessment & Plan Assessment & Plan (1) Type 2 diabetes mellitus with hyperglycemia: Code(s): E11.65 - Type 2 diabetes mellitus with hyperglycemia Category: Medical (2) Hypercholesterolemia: Code(s): E78.00 - Pure hypercholesterolemia, unspecified Category: Medical (3) Hypertension: Code(s): I10 - Essential (primary) hypertension Category: Medical (4) Obesity (BMI 30-39.9): Code(s): E66.9 - Obesity, unspecified Category: Medical Plan - Repeat fasting blood work to reassess blood sugar and cholesterol levels. - Continue current antihypertensive therapy with lisinopril and hydrochlorothiazide, monitor blood pressure. - Encourage consistent use of CPAP to manage obstructive sleep apnea. - Benefits Clerk the patient extensively on dietary modifications to reduce intake of high-carbohydrate foods and beverages high in sugar. - Advise the patient to consider reducing or eliminating the use of artificial sweeteners due to potential adverse health effects. - Recommend regular physical activity and weight management with the target of reducing body weight below 200 pounds. - Schedule an annual ophthalmology examination due to the high sugar levels affecting retinal blood vessels. - Schedule follow-up in three months to monitor progress and reassess management plans.
[2024-12-23 13:19] VITALS: BP 110/76; PULSE 72; TEMP 36.2; O2SAT 94; BMI 33.0
== END 2024-12-23 14:08 | disposition home or self-care (01) ==
PROVIDERS: PCP Internal Medicine; Visit Provider Internal Medicine
DX: E11.65 Type 2 diabetes mellitus with hyperglycemia (principal); E78.00 Pure hypercholesterolemia, unspecified; E66.9 Obesity, unspecified; Z68.33 Body mass index [BMI] 33.0-33.9, adult; I10 Essential (primary) hypertension

== ENCOUNTER 2025-03-31 13:40 | Outpatient (AMB) | payer BC, SELFPAY ==
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
[2025-03-31 14:03] VITALS: BP 112/72; PULSE 47; TEMP 36.4; O2SAT 98; BMI 31.1
== END 2025-03-31 14:33 | disposition home or self-care (01) ==
LOC: HO.HMCH 13:40
PROVIDERS: PCP Internal Medicine; Visit Provider Internal Medicine
DX: E11.65 Type 2 diabetes mellitus with hyperglycemia (principal); K76.0 Fatty (change of) liver, not elsewhere classified; E66.9 Obesity, unspecified; Z68.31 Body mass index [BMI] 31.0-31.9, adult; E78.00 Pure hypercholesterolemia, unspecified; G47.33 Obstructive sleep apnea (adult) (pediatric); I10 Essential (primary) hypertension; M47.816 Spondylosis without myelopathy or radiculopathy, lumbar region

== ENCOUNTER → 2025-03-31 13:40 | Outpatient (BNVA) | payer BC, SELFPAY | PROVIDERS: PCP Internal Medicine; Visit Provider Internal Medicine | DX: E11.65 Type 2 diabetes mellitus with hyperglycemia (principal); K76.0 Fatty (change of) liver, not elsewhere classified; E78.00 Pure hypercholesterolemia, unspecified; G47.33 Obstructive sleep apnea (adult) (pediatric); I10 Essential (primary) hypertension; E66.9 Obesity, unspecified; Z68.31 Body mass index [BMI] 31.0-31.9, adult; M47.816 Spondylosis without myelopathy or radiculopathy, lumbar region | CPT/HCPCS: 83036; 96127 ==

== ENCOUNTER 2025-04-02 09:44 | Outpatient (REF) | payer BC, SELFPAY ==
[2025-04-02 09:57] LABS: MANUAL DIFF FLAG NO
[2025-04-02 10:53] LABS: Basophils Absolute Auto 0.1 X10*3/uL (0.0-0.2); Basophils Percent Auto 0.7 % (0-2); Eosinophils Absolute Auto 0.2 X10*3/uL (0.0-0.4); Eosinophils Percent Auto 3.3 % (0-4); Hematocrit 46.2 % (42.0-52.0); Hemoglobin 14.6 g/dl (14.0-18.0); Imm Gran Abs Auto 0.01 X10*3/uL (0.00-0.03); Imm Gran Pct Auto 0.1 % (0.0-0.4); Lymphocytes Absolute Auto 1.8 X10*3/uL (1.2-4.9); Lymphocytes Percent Auto 25.7 % (20-40); Mean Corpuscular HGB Conc 31.6 g/dl (31.0-36.0); Mean Corpuscular Volume 85.4 fL (80.0-98.0); Mean Platelet Volume 11.3 fL (9.4-12.4); Monocytes Absolute Auto 0.6 X10*3/uL (0.1-1.2); Monocytes Percent Auto 8.6 % (2-11); Neutrophils Absolute Auto 4.3 x10*3/uL (2.0-8.3); Neutrophils Percent Auto 61.6 % (45-73); Platelet Count 235 X10*3/uL (160-400); Red Blood Count 5.41 X10*6/uL (4.60-5.80)
[2025-04-02 11:08] LABS: Estimated Average Glucose 120 mg/dL; Hemoglobin A1C 155.2123 umol/L; Hemoglobin A1c % 5.8 % (<6.0); Total Hemoglobin (HGBA1C) 3849.5876 umol/L
[2025-04-02 11:32] LABS: Alanine Aminotransferase 28 U/L (0-40); Albumin Level 4.3 g/dL (3.5-5.0); Anion Gap 12 (12-20); Aspartate Amino Transferase 33 U/L (5-37); Bilirubin Total 0.8 mg/dL (0.0-1.0); Blood Urea Nitrogen 16 mg/dL (9-16); Calcium 9.8 mg/dL (8.4-10.2); Carbon Dioxide 30 mmol/L (22-29); Chloride 105 mmol/L (96-108); Cholesterol 177 mg/dL (<200); Estimated Glomerular Filt Rate > 60; Glucose Random 108 mg/dL (60-115); HDL Cholesterol 46 mg/dL (>40); LDL Cholesterol Calculated 113 mg/dL (<100); Potassium 4.8 mmol/L (3.3-5.1); Sodium 142 mmol/L (135-145); Total Protein 7.3 g/dL (6.5-8.0); Triglycerides 91 mg/dL (<150)
[2025-04-02 11:39] LABS: Creatinine Urine 157.46 mg/dL; Microalbum/Creatinine Ratio Ur 3.8 ug/mg cr (<30)
[2025-04-02 11:58] LABS: Folate 13.7 ng/mL (> or = 4.0); Prostate Specific Antigen Scr 0.22 ng/mL (<0.05-4.0); Vitamin B12 512 pg/mL (200-900)
[2025-04-02 12:01] LABS: Free T4 (Free Thyroxine) 1.08 ng/dL (0.71-1.85); Thyroid Stimulating Hormone 1.41 uIU/mL (0.32-4.0)
[2025-04-02 13:11] LABS: Alkaline Phosphatase 74 U/L (39-117)
== END 2025-04-02 09:45 | disposition home or self-care (01) ==
LOC: HO.LAB 09:44
PROVIDERS: PCP Internal Medicine; Visit Provider Internal Medicine
DX: E11.65 Type 2 diabetes mellitus with hyperglycemia (principal); E78.00 Pure hypercholesterolemia, unspecified; Z12.5 Encounter for screening for malignant neoplasm of prostate
CPT/HCPCS: 36415; 80053; 80061; 82043; 82570; 82607; 82746; 83036; 84153; 84439; 84443; 85025

== ENCOUNTER 2025-09-22 13:25 | Outpatient (AMB) | payer BC, SELFPAY ==
[2025-09-22 13:39] VITALS: BP 110/74; PULSE 53; O2SAT 97; BMI 29.4
--- NOTE | 2025-09-22 13:39 | A.OFFPC_ITS ---
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 Required: No Accompanied by: Self / Same As Patient Allergies Penicillins Allergy (Mild, Verified 09/22/25 13:40) Unknown Medication List - Last Reconciled 09/22/25 by Stephania Torre MD [AUTOPAP 6-20 cm H20 heated and supplieshumidified AIR As directed] blood pressure monitor (Blood Pressure Kit) As directed cetirizine 10 mg PO DAILY PRN [heated humidifier Lifetime] lisinopril 10 mg PO DAILY multivit with min-folic acid 120 mcg (Centrum Adult 50 Plus Fresh-Fruity) 1 tab PO DAILY Tobacco use date assessed: 09/22/25 Dental Screening Dental Screen Date: 09/22/25 Did you have a dental visit in the last 12 months?: No Did you have a dental problem in the last 6 months where you did not have access to dental care?: No Was dental information given to patient?: No [facility] Medical History (Updated 09/22/25 @ 14:41 by Stephania Torre MD) Impaired fasting blood sugar Hemorrhoids without complication Diverticulosis Tubular adenoma of colon Hypercholesterolemia Obstructive sleep apnea Elevated blood sugar Colon cancer screening Blood pressure elevated without history of HTN GERD (gastroesophageal reflux disease) Family history of colorectal cancer Lumbar vertebral fracture Surgical History History of colonoscopy History of umbilical hernia repair (12/08/23) History of appendectomy Family History Maternal Uncle Myocardial infarct Father Colon cancer Mother Small cell lung cancer Sister Bipolar 1 disorder Other Mental health disorder Social History (Updated 09/22/25 @ 14:29 by Stephania Torre MD) Housing: House Alcohol intake: current Alcohol intake frequency: holidays/special occasions only Comment: glass of wine once Q 2 month Patient Tobacco Use Status: Former Tobacco user Years Smoked: quit 1987 1 pack week 6months e-Cigarette/Vaping Use: Never Used Second Hand Smoke Exposure: Yes service: No Current occupational status: employed Cognitive needs: No Hearing needs: No Vision needs: No Questionnaire Thrive Questionnaire Date Thrive assessed: 03/29/25 I am a: Patient What is your living situation today?: I have a steady place to live Within the past 12 months, did the food you bought not last and you didn't have the money to get more?: Never true Within the past 12 months, did you worry whether your food would run out before you got money to buy more?: Never true Do you have trouble paying for medicines?: No Do you have trouble getting transportation to medical appointments?: No Do you have trouble paying your heating and electricity bill?: I choose not to answer this question Do you have trouble taking care of your child, family member or friend?: No Do you have trouble with day-to-day activities such as bathing, preparing meals, shopping, managing finances, etc.?: No Are you currently unemployed and looking for a job?: No Are you interested in more education?: No Please select the resources that you would like help with: None Currently or been in a relationship where the following occur: No concerns repo rted THRIVE Score: 0 AUDIT C Alcohol Use Questionnaire (AUDIT-C) 1. How often do you have a drink containing alcohol?: Monthly or less 2. How many drinks containing alcohol do you have on a typical day when you are drinking?: 1 or 2 3. How often do you have six or more drinks on one occasion?: Never Total Score: 1 BARBER-7 AMB Questionnaire BARBER-7 Date BARBER - 7 assessed: 12/23/24 Source: Developed by Drs. Eric Watson, Yoselin Carranza, French Navas and colleagues, with an educational bruce from [employer]. Review of Systems Const Denies poor appetite and Denies weakness Eyes Denies no additional complaints ENT Reports Normal hearing present, Denies dizziness, Denies nasal congestion, Denies tinnitus and Denies sore throat Card Denies chest pain, Denies syncope, Denies rapid heart rate and Denies dyspnea Resp Denies cough and Denies dyspnea GI Denies change in stool character, Reports constipation, Denies diarrhea, Denies nausea and Denies vomiting Denies dysuria and Denies urinary frequency Neuro Reports Normal hearing present, Denies confusion, Denies dizziness, Denies syncope and Denies weakness Psych Denies confusion Physical exam (Primary Care) Vital Signs: Last Vital Signs Pulse 53 09/22/25 13:39 BP 110/74 09/22/25 13:39 Pulse Ox 97 09/22/25 13:39 Oxygen Delivery Method Room Air 09/22/25 13:39 BMI result Body Mass Index 29.4 Tobacco/Smoking Status: Tobacco use Status Tobacco use date assessed 09/22/25 09/22/25 13:49 Patient Tobacco Use Status Former Tobacco user 09/22/25 14:29 e-Cigarette/Vaping Use Never Used 09/22/25 14:29 Thrive Assessment: Date of Thrive Assessment Date Thrive assessed 03/29/25 09/22/25 13:49 Currently or been in a relationship where the following occur: No concerns reported Const General: No confusion Orientation/consciousness: No confusion HENMT Head: Yes normocephalic Ears: external ears normal and TM's normal bilaterally Face and sinus: Yes normal facial exam Mouth: moist mucous membranes Throat: Yes tonsils normal Eyes Conjunctivae: conjunctivae normal Pupils: Equal, round and reactive pupils present and Pupil accommodation reflex normal Direct Ophthalmoscopy: normal light reflex Neck Neck: No lymphadenopathy Thyroid: Thyroid normal Chest Chest palpation & inspection: normal inspection of the chest Resp Effort & Inspection: normal respiratory effort and no audible wheezes Auscultation: clear to auscultation bilaterally, no crackles, no wheezes and lung sounds not diminished Cardio Rate: regular rate Rhythm: regular rhythm Peripheral pulses: radial pulses present and dorsalis pedis present GI Palpation (GI): no masses Auscultation: normal bowel sounds and normoactive bowel sounds Rectal Exam - Male: Yes deferred Skin General skin exam: no rashes or lesions noted Rashes: no rashes Neuro General: No confusion Cranial nerves: Yes Equal, round and reactive pupils present and Yes Normal hearing present Cognition (Neuro): normal cognition Gait exam (Neuro): Normal gait present Motor exam (neuro): 5/5 motor strength present throughout Deep tendon reflexes (DTR's): Right brachioradialis reflex intensity grade: 2+, Left brachioradialis reflex intensity grade: 2+, Right patellar reflex intensity grade: 2+ and Left patellar reflex intensity grade: 2+ Extrem General: No edema Office Procedures Flu Questionnaire Does the patient have a severe egg allergy?: No Does the patient have severe life threatening allergies?: No Does the patient have a fever or illness today?: No Has the patient ever had Guillain-Fithian Syndrome?: No Has the patient ever had any past reaction to a flu shot?: No Results AMB Hemoglobin A1c AMB Hemoglobin A1c 5.2 % Last Edit by SERA Bear on 09/22/25 16 :11 Immunizations Fluarix [id number] (PF) 45 mcg (15 mcg x 3)/0.5 mL IM syringe Performing Provider: Stephania Torre MD Performing Location: [facility] Administered by: SERA Bear on 09/22/25 14:47 Dose Route Admin Location Dispensed Lot Number Expiration Date [facility] Food Mixer Repairer 0.5 mL IM Left Deltoid 0.5 mL [id number] 05/30/26 [id number] [employer] VIS Given Date VIS Provided VIS Publication Date 09/22/25 Single Vaccine 24 Eligibility Eligibility Date Funding Source Not [facility] Eligible 09/22/25 Private Results Reviewed Results Reviewed: Laboratory Last Values Hgb A1c (Clinic) 5.2 % (4.0-6.0) 09/22/25 14:36 Coding Level of Care Code Est Pt Prev Care 40-64y(98297) Diagnoses Annual physical exam Z00.00 Type 2 diabetes mellitus with hyperglycemia E11.65 Hypertension I10 Hypercholesterolemia E78.00 Hepatic steatosis K76.0 Obstructive sleep apnea G47.33 Vasectomy evaluation Z30.09 Assessment & Plan Assessment & Plan (1) Annual physical exam: Code(s): Z00.00 - Encounter for general adult medical examination without abnormal findings Category: Medical Plan: Patient is advised to eat healthy, keep well hydrated, keep active and have a dequate sleep. (2) Type 2 diabetes mellitus with hyperglycemia: Code(s): E11.65 - Type 2 diabetes mellitus with hyperglycemia Category: Medical Plan: Decrease the amount of carbohydrate intake, pasta, bread, rice and potatoes are all sugar and that is aside from all the sweet stuff, remember that fruits are good but they are Sweet also. Hemoglobin A1c goal of less than 6.5. Patient is diet controlled (3) Hypertension: Code(s): I10 - Essential (primary) hypertension Category: Medical Plan: Continue with blood pressure medication. Decrease salt intake and exercise on lisinopril 10 mg once a day (4) Hypercholesterolemia: Code(s): E78.00 - Pure hypercholesterolemia, unspecified Category: Medical Plan: Avoid fried foods, chicken skin, eggs, butter margarine, pastries and meat. Be it pork or beef they have a lot of cholesterol LDL goal of less than 100 and triglyceride of less than 150 (5) Hepatic steatosis: Comment: May 2024 Code(s): K76.0 - Fatty (change of) liver, not elsewhere classified Category: Medical Plan: Low-fat diet and exercise (6) Obstructive sleep apnea: Comment: Sleep study done 08/21/2023 showing severe. Obstructive sleep apnea AHI 30 advised CPAP auto PAP 6-20 Code(s): G47.33 - Obstructive sleep apnea (adult) (pediatric) Category: Medical Plan: have not used the CPAP and has lost a lot (7) Vasectomy evaluation: Code(s): Z30.09 - Encounter for other general counseling and advice on contraception Category: Medical Plan History of Present Illness The patient is a 55-year-old male presenting for a physical exam and review of medical conditions. The patient has a history of hypertension, managed with lisinopril 10 mg once daily, and reports good blood pressure control without home monitoring. He has obstructive sleep apnea but has not used his CPAP machine regularly for three months, attributing improvement to weight loss and increased physical activity. The patient has hypercholesterolemia with an LDL level of 113 mg/dL, advised to follow a low-fat diet and exercise to achieve an LDL goal of less than 100 mg/dL. He has a history of tubular adenoma of the colon, with the last colonoscopy in January 2024, hepatic steatosis, and diabetes mellitus with a hemoglobin A1c of 5.8%. The patient reports lumbar spondylosis and a burning sensation in his leg, attributed to nerve irritation, with no recent falls or injuries. He has a fungal infection on his feet, consistent with athlete's foot, and is advised to use [id number] antifungal treatments. Family history includes small cell lung cancer in his mother and colon cancer in his father, with rare alcohol consumption and no tobacco or recreational drug use. Health Maintenance - Colonoscopy performed in January 2024 for tubular adenoma of the colon - Blood work in March showing normal blood count, electrolytes, and renal function - Hemoglobin A1c of 5.8% indicating controlled diabetes mellitus - LDL cholesterol level of 113 mg/dL, advised to follow a low-fat diet and exercise - Advised to use CPAP machine regularly for obstructive sleep apnea - Recommended [id number] antifungal treatment for athlete's foot - Family history of small cell lung cancer and colon cancer discussed Social History - Family status: Lives with girlfriend, has three children, one with current partner - Exercise: Engages in regular physical activity, including gym workouts and walking at work - Substance use: Rare alcohol consumption, no tobacco or recreational drug use - Nutrition: Following a low-fat diet, occasional indulgence in fast food Review of Systems - General: Denies fever, nausea, vomiting - Cardiovascular: Denies chest pain, heaviness, discomfort - Respiratory: Denies dyspnea, cough - Gastrointestinal: Denies problems with swallowing, reports normal bowel movements - Genitourinary: Denies problems with urination, reports waking once at night to urinate - Neurological: Denies dizziness, syncope Physical Exam General: Cooperative, healthy appearing, comfortable, no acute distress and well developed Orientation: Patient oriented x3 Limitations: No limitations Head: Normal to inspection Ears: Hearing grossly normal bilaterally Nose: Normal external nose present Face and sinus: Normal facial exam Eyes: Appearance normal, both eyes and all related structures Neck: Normal visual inspection and Yes full ROM Respiratory: Normal respiratory effort and able to speak in complete sentences. Clear to auscultation bilaterally Cardiovascular: Regular rate and rhythm. Normal S1 and S2 GI: Normal to inspection. Soft to palpation and nontender Skin: No rashes or lesions noted Neuro: Patient oriented x3 Extremities: Normal to inspection, but noted fungal infection (athlete's foot) present. Results - Labs: Normal blood count, electrolytes, renal function stable at 1.08, blood sugar 108 mg/dL, hemoglobin A1c 5.8% - Cholesterol: LDL 113 mg/dL, mildly elevated - Prostate, B12, folic acid, thyroid all within normal limits Plan Patient was informed and verbally consented to the use of an ambient scribe for clinic note documentation during this visit. 1. Hypertension The patient is managing hypertension with lisinopril 10 mg daily, showing good control. Consideration for medication reduction if stability continues, but no changes currently. 2. Obstructive Sleep Apnea The patient has not used the CPAP machine regularly, attributing improvement to weight loss and activity. Advised to resume CPAP use for effective symptom management. 3. Hypercholesterolemia LDL cholesterol is 113 mg/dL, mildly elevated. Advised to follow a low-fat diet and exercise to reach LDL goal <100 mg/dL. 4. Tubular Adenoma Of The Colon History of tubular adenoma with last colonoscopy in January 2024. Recommended continued surveillance with regular colonoscopies. 5. Hepatic Steatosis Hepatic steatosis managed with lifestyle modifications, including diet and exercise. 6. Diabetes Mellitus Diabetes is diet-controlled, with hemoglobin A1c at 5.8%. Goal to maintain A1c below 6.5% through dietary management. 7. Lumbar Spondylosis Reports lumbar spondylosis with burning sensation in leg, attributed to nerve irritation. No recent falls or injuries, no specific interventions discussed. 8. Athlete's Foot Fungal infection on feet, consistent with athlete's foot. Advised to use [id number] antifungal treatments. Discussion Notes During the visit, we discussed the management of hypertension with lisinopril and the potential for medication adjustment if blood pressure remains stable. The importance of regular CPAP use for obstructive sleep apnea was emphasized, despite the patient's perceived improvement from weight loss and exercise. We reviewed the patient's mildly elevated LDL cholesterol and reinforced the need for dietary changes and exercise to achieve target levels. The patient was advised on the use of [id number] antifungal treatments for athlete's foot. We also discussed the patient's family history of cancer and the importance of continued surveillance for colon health. Patient Instructions - Continue taking lisinopril 10 mg daily for blood pressure management. - Resume regular use of CPAP machine for sleep apnea management. - Follow a low-fat diet and exercise regularly to manage cholesterol levels. - Use [id number] antifungal treatments for athlete's foot. - Schedule a follow-up colonoscopy as recommended. Orders: Orders AMB Hemoglobin A1c Today Z13.9 - Encounter for screening, unspecified Influenza [id number] Immunization Today Z23 - Encounter for immunization Lipid Panel 3 Months E11.65 - Type 2 diabetes mellitus with hyperglycemia, E78.00 - Pure hypercholesterolemia, unspecified Comprehensive Met. Panel 3 Months E11.65 - Type 2 diabetes mellitus with hyperglycemia Hemoglobin A1c 3 Months E11.65 - Type 2 diabetes mellitus with hyperglycemia Referrals Urology Referral Z30.09 - Encounter for other general counseling and advice on contraception
== END 2025-09-22 14:53 | disposition home or self-care (01) ==
LOC: HO.HMCH 13:26
PROVIDERS: PCP Internal Medicine; Visit Provider Internal Medicine
DX: Z00.00 Encounter for general adult medical examination without abnormal findings (principal); E11.65 Type 2 diabetes mellitus with hyperglycemia; I10 Essential (primary) hypertension; E78.00 Pure hypercholesterolemia, unspecified; K76.0 Fatty (change of) liver, not elsewhere classified; G47.33 Obstructive sleep apnea (adult) (pediatric); Z30.09 Encounter for other general counseling and advice on contraception; Z13.9 Encounter for screening, unspecified; Z23 Encounter for immunization

== ENCOUNTER → 2025-09-22 13:25 | Outpatient (BNVA) | payer BC, SELFPAY | PROVIDERS: PCP Internal Medicine; Visit Provider Internal Medicine | DX: Z00.00 Encounter for general adult medical examination without abnormal findings (principal); E11.65 Type 2 diabetes mellitus with hyperglycemia; I10 Essential (primary) hypertension; E78.00 Pure hypercholesterolemia, unspecified; K76.0 Fatty (change of) liver, not elsewhere classified; G47.33 Obstructive sleep apnea (adult) (pediatric); M47.816 Spondylosis without myelopathy or radiculopathy, lumbar region; B35.3 Tinea pedis; Z23 Encounter for immunization; Z30.09 Encounter for other general counseling and advice on contraception; Z99.89 Dependence on other enabling machines and devices | CPT/HCPCS: 83036; 90471; 90656 ==